=== PATIENT | male | born 1955 | race Caucasian/White ===

== ENCOUNTER 2025-07-13 18:50 | Observation (INO) | payer OTHER, SELFPAY ==
[2025-07-13] VITALS (16 sets, daily range): BP systolic 125–157; BP diastolic 70–105; PULSE 61–79; RESP 18; TEMP 36.9; O2SAT 96–100; BMI 19.1
--- NOTE | 2025-07-13 18:58 | XR_ITS ---
PROCEDURE INFORMATION: Exam: XR Chest Exam date and time: 07/13/2025 7:55 PM Age: 69 years old Clinical indication: Shortness of breath; Additional info: Short of breath TECHNIQUE: Imaging protocol: Radiologic exam of the chest. Views: 1 view. COMPARISON: CT ABDOMEN PELVIS W CON 07/13/2025 7:40 PM FINDINGS: Lungs: The lungs appear clear. No focal areas of consolidation. Left lung volume is mildly diminished compared to the right which may be due to patient positioning. Pleural spaces: No pleural effusions. Negative for pneumothorax. Heart/Mediastinum: Cardiac silhouette and pulmonary vasculature are within range of normal. Bones/joints: There is no evidence of acute fracture. The thoracic spine demonstrates moderate degenerative changes at multiple levels. Soft tissues: A few small foci of increased density in the left axillary region may reflect postsurgical change. IMPRESSION: Negative for an acute cardiopulmonary abnormality.
--- NOTE | 2025-07-13 18:59 | CT_ITS ---
PROCEDURE INFORMATION: Exam: CT Abdomen And Pelvis With Contrast Exam date and time: 07/13/2025 7:40 PM Age: 69 years old Clinical indication: Other: Weakness/dysuria TECHNIQUE: Imaging protocol: Computed tomography of the abdomen and pelvis with contrast. Radiation optimization: All CT scans at this facility use at least one of these dose optimization techniques: automated exposure control; mA and/or kV adjustment per patient size (includes targeted exams where dose is matched to clinical indication); or iterative reconstruction. Contrast material: ISOVUE; Contrast volume: 75 ml; Contrast route: IV; COMPARISON: No relevant prior studies available. FINDINGS: Lungs: Mild centrilobular emphysematous changes are present. There is a 6.1 mm nodule in the right middle lobe seen on series 3, image 12. There is mild mosaic attenuation involving the visualized right mid lung. There is mild paraseptal emphysema involving the visualized lung bases.There is a pulmonary parenchymal calcification consistent with remote granulomatous organism exposure. Pleural spaces: There are no pleural effusions. Heart: The visualized portions of the heart are unremarkable. There is no evidence of pericardial fluid collections. Liver: The liver demonstrates a punctate calcification consistent with remote granulomatous organism exposure.There is diffuse decrease in hepatic/liver parenchymal density consistent with fatty infiltration. Gallbladder and biliary ducts: The gallbladder is normal. Pancreas: There is diffuse atrophy of the pancreatic parenchyma. Spleen: The spleen demonstrates punctate calcifications, consistent with remote granulomatous organism exposure. Adrenal glands: The adrenal glands are normal. Kidneys and ureters: There is an inferior right renal cyst measuring 2.2 cm. There are few areas of renal cortical scarring/thinning bilaterally. No hydronephrosis. Stomach and bowel: Apparent antral pyloric mural thickening could be on the basis of incomplete distension but cannot exclude gastritis or other inflammatory or infiltrative process. Correlate clinically. Lack of gastrointestinal contrast limits evaluation of bowel. There is mildly excessive colonic stool content. Unopacified loops of small bowel are within range of normal. There is mild fluid-filled distension of the proximal duodenum proximal to its crossing over the midline, findings of uncertain clinical significance. Correlate clinically. Appendix: No evidence of appendicitis. Intraperitoneal space: No evidence of intraperitoneal free air. There is no evidence of free intraperitoneal or pelvic fluid. Vasculature: There is no evidence of an aortic aneurysm. The aorta demonstrates mild atherosclerotic calcification. There is an aneurysm of the abdominal aorta, originating below the level of the renal artery origins and terminating above the level of the aortic bifurcation measuring approximately 3.7 x 3.9 x 5.9 cm. There is a moderate degree of peripheral atheromatous/thrombus. Subtle streaky linear areas of decreased attenuation within the SMV, portal vein and right portal vein branches likely reflect inflow phenomenon. There is minor narrowing of the proximal SMA best seen on series 3, images 43 -49. Mild vascular calcifications involve the proximal renal arteries bilaterally. Findings suggest mild stenosis involving the right renal artery. Lymph nodes: There are prominent inguinal lymph nodes bilaterally. One of the more prominent right inguinal lymph nodes measures approximately 1.9 cm. Right and more prominent left inguinal lymph nodes measures 1.8 cm. Correlate clinically. There is a prominent right pelvic external iliac node measuring 13 mm in short axis. There are prominent left external iliac nodes also present measuring approximately 13 mm. No additional pathologic adenopathy. Urinary bladder: The bladder is partially decompressed. As seen, it appears within range of normal. Reproductive: The prostate and seminal vesicles are normal. Bones/joints: There are mild degenerative changes of the hip joints. There are mild degenerative changes of the symphyseal pubic joint. There are mild degenerative changes of the sacroiliac joints. The thoracolumbar spine demonstrates mild degenerative changes at multiple levels. Soft tissues: Unremarkable. IMPRESSION: 1. Multiple enlarged bilateral inguinal and external iliac lymphadenopathy. Correlate clinically. Included in the differential is metastatic disease and lymphoma in the appropriate clinical setting. 2. Infrarenal aortic aneurysm measuring 3.7 x 3.9 x 5.9 cm with moderate degree of peripheral thrombus. 3. Apparent mild antral pyloric mural thickening could be on the basis of incomplete distension but cannot exclude gastritis or other inflammatory or infiltrative process. Correlate clinically. 4. Mild emphysematous changes 5. Fatty hepatic infiltration. 6. Mild constipation. 7. Mild fluid-filled prominence of the proximal duodenum prior to crossing to the left of midline of uncertain clinical significance. Correlate clinically. 8. 6.1 mm nodule in the right middle lobe. For patients at low risk (minimal or absent history of smoking and of other known risk factors), recommend CT Chest at 3-6 months, then consider CT Chest at 18-24 months. For patients at high risk (history of smoking or of other known risk factors), recommend CT Chest at 3-6 months, then CT Chest at 18-24 months. (Reference: Nicanor) References: Nicanor Hdez et al. Guidelines for Management of Incidental Pulmonary Nodules Detected on CT Images: From the [employer]ner Society 2017. Radiology. 2017;284(1):228-243. COMMENTS: Consistent with the [employer]'s Incidental Findings Committee white paper (J Am Sascha Radiol 2018): Any incidental renal lesion less than 1 cm or classified as too small to characterize, or any incidental cystic renal lesion characterized as simple-appearing, is likely benign. No follow-up imaging is recommended for these lesions per consensus recommendations based on imaging criteria.
--- NOTE | 2025-07-13 19:00 | ED_ITS ---
<Statement entered by Blaine Cruz MD - 07/13/25 22:43> I was consulted by the NATA, and we discussed the complexity of the problems being addressed. I approved the treatment and management plan for this patient's care in the emergency department, thus performing a substantive portion of the medical decision making. Blaine Cruz MD, [place], FACEP Discharge Plan Disposition Patient Disposition: Xfer Other Referrals Follow up/Referrals: Provider,Referral, MD [Primary Care Provider, Medical] - See instructions Clinical Impressions Clinical Impression: Exfoliative erythroderma, Bilateral leg weakness, Peripheral vascular disease, Inability to walk, Abdominal aneurysm Print Language Print Language: Telugu Discharge ED Provider: Blaine Cruz General Adult HPI <Erica Cam (ED), NOTCHING PRESS OPERATOR - Last Filed: 07/13/25 22:28> General Chief complaint: Weakness Stated complaint: weakness Time Seen by Provider: 07/13/25 18:54 Mode of Arrival: EMS Source of Information: Patient and EMS Description of Symptoms (Recalled from ER Triage Doc. by RN): Pt presents by EMS for evaluation of multiple complaints. [place] but is staying in [place] with a friend. Pt is reporting pain all over , is having difficulty with standing, left leg pain, and has been urinating on himself. [facility] History of Present Illness HPI narrative: 69-year-old male presents via EMS for weakness, dysuria, incontinence for over a week, back pain however this is chronic, bilateral leg pain, difficulty walking over the last week. Patient has had no recent falls however he tells me that he fell 2 months ago. [facility] has had [facility] in the past. He has no idea when he has had a stroke the last 2. Patient has no focal weakness. He has no fevers, no chills, no burning with urination no vomiting no abdominal pain no diarrhea. He is a heavy smoker. He has been wearing depends whereas he typically does not wear depends. Daughter states that he has not been taking his meds correctly. She tells me that he is a smoker. 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 Related Data Allergies Allergy/AdvReac Type Severity Reaction Status Date / Time No Known Allergies Allergy Verified 07/13/25 19:04 PFSH <Erica Cam (ED), NOTCHING PRESS OPERATOR - Last Filed: 07/13/25 22:28> [facility] Disclaimer: The information contained in this section may have been updated after the patient was seen, as this information can be updated by other users. Social History (Updated 07/13/25 @ 22:28 by Erica Cam (ED), NOTCHING PRESS OPERATOR) Smoking Status: Current every day smoker alcohol intake: former current occupational status: other Travel in the last 8 weeks?: None Have you lived/traveled outside US in past 30 days?: No Contact w/someone who lives/traveled outside US past 30 days?: No Exposure to someone with infectious disease in past 14 days?: No Do you have a fever (greater than 100.4 F or 38 C)?: No Have you tested positive for COVID-19?: No Exposed to someone with COVID-19 in past 14 days?: No Do you have a sore throat?: No Do you have a cough?: No Do you have any weakness?: No Do you have any diarrhea?: No Are you experiencing any unusual bleeding?: No Do you have any muscle aches/pain?: No Do you have any abdominal pain?: No Are you experiencing loss of taste or smell?: No <Erica Cam (ED), NOTCHING PRESS OPERATOR - Last Filed: 07/13/25 22:28> ROS Obtained: Yes Systems reviewed as appropriate & no additional complaints except as documented Constitutional Constitutional: Reports as per HPI Physical Exam <Erica Cam (ED), NOTCHING PRESS OPERATOR - Last Filed: 07/13/25 22:28> General General appearance: alert and in distress Comment: Appears uncomfortable from head to toe psoriasis Head Head exam: atraumatic and normocephalic Eye Eye exam: Present PERRL and EOMI ENT ENT exam: Present normal oropharynx and mucous membranes moist Neck Neck exam: Present full ROM and trachea midline Respiratory Respiratory exam: Present normal lung sounds bilaterally Cardiovascular Cardiovascular exam: Present regular rate, normal rhythm, normal heart sounds, +S1 and +S2 Abdominal Exam Abdominal exam: Present soft and normal bowel sounds Extremities Exam Extremities exam: Present full ROM and other (Psoriasis) Neurological Exam Neurological exam: Present alert and oriented X3 Skin Skin exam: Present warm, dry, rash, erythema and other (Very scaly, dry skin covered with psoriasis) Medical Decision Making <Erica Cam (ED), NOTCHING PRESS OPERATOR - Last Filed: 07/13/25 22:28> Medical Records Screening: Per USPSTF and CDC recommendations, given the prevalence of disease in our region, it is our hospital?s policy to screen for HIV and viral Hepatitis for all patients aged 18 and over and those with ongoing risk factors. [place] Inquiry Pt receiving controlled substance: No [place] was queried for this patient: No Vital Signs: 07/13/25 18:49 07/13/25 19:19 07/13/25 19:30 Temperature 98.5 F Temperature Source Oral Pulse Rate 79 Pulse Rate [Right] 76 Respiratory Rate 18 Blood Pressure 125/70 Blood Pressure [Right Arm] 150/105 H Blood Pressure Mean 97 Blood Pressure Mean [Right Arm] 120 Blood Pressure Source [Right Arm] Automatic Cuff Blood Pressure Position [Right Arm] Sitting 02 Sat by Pulse Oximetry 96 99 Oxygen Delivery Method Room Air Room Air 07/13/25 19:58 07/13/25 19:59 07/13/25 20:00 Temperature Temperature Source Pulse Rate 72 73 Pulse Rate [Right] Respiratory Rate Blood Pressure 140/75 Blood Pressure [Right Arm] Blood Pressure Mean 96 Blood Pressure Mean [Right Arm] Blood Pressure Source [Right Arm] Blood Pressure Position [Right Arm] 02 Sat by Pulse Oximetry 100 99 Oxygen Delivery Method Room Air Room Air 07/13/25 20:14 07/13/25 20:31 07/13/25 20:51 Temperature Temperature Source Pulse Rate 74 72 Pulse Rate [Right] Respiratory Rate Blood Pressure 157/93 H Blood Pressure [Right Arm] Blood Pressure Mean 114 Blood Pressure Mean [Right Arm] Blood Pressure Source [Right Arm] Blood Pressure Position [Right Arm] 02 Sat by Pulse Oximetry 99 98 Oxygen Delivery Method Room Air Room Air 07/13/25 21:00 07/13/25 22:14 07/13/25 22:15 Temperature Temperature Source Pulse Rate 77 67 Pulse Rate [Right] Respiratory Rate Blood Pressure Blood Pressure [Right Arm] Blood Pressure Mean Blood Pressure Mean [Right Arm] Blood Pressure Source [Right Arm] Blood Pressure Position [Right Arm] 02 Sat by Pulse Oximetry 99 96 100 Oxygen Delivery Method Room Air Room Air Room Air 07/13/25 22:15 07/13/25 22:30 07/13/25 22:30 Temperature Temperature Source Pulse Rate 64 Pulse Rate [Right] Respiratory Rate Blood Pressure 137/85 132/74 Blood Pressure [Right Arm] Blood Pressure Mean 102 93 Blood Pressure Mean [Right Arm] Blood Pressure Source [Right Arm] Blood Pressure Position [Right Arm] 02 Sat by Pulse Oximetry 98 Oxygen Delivery Method Room Air 07/13/25 22:45 07/13/25 23:00 Temperature Temperature Source Pulse Rate 61 Pulse Rate [Right] Respiratory Rate Blood Pressure 155/82 H Blood Pressure [Right Arm] Blood Pressure Mean 106 Blood Pressure Mean [Right Arm] Blood Pressure Source [Right Arm] Blood Pressure Position [Right Arm] 02 Sat by Pulse Oximetry 98 Oxygen Delivery Method Room Air Lab Data Lab Results 07/13/25 18:58: WBC 11.2 H, RBC 4.52 L, Hgb 14.6, Hct 41.9 L, MCV 92.7, MCH 32.3 H, MCHC 34.8, RDW 14.4, Plt Count 395, MPV 10.8 H, Neut % (Auto) 73.6, Lymph % (Auto) 14.1, [place] % (Auto) 10.5 H, Eos % (Auto) 0.6, Baso % (Auto) 0.8, Neut # (Auto) 8.3 H, Lymph # (Auto) 1.6, [place] # (Auto) 1.2 H, Eos # (Auto) 0.1, Baso # (Auto) 0.1, Total Counted 100, Neutrophils % (Manual) 71, Lymphocytes % (Manual) 13, Monocytes % (Manual) 12 H, Eosinophils % (Manual) 3, Basophils % (Manual) 1.0, Platelet Estimate Normal, Giant Platelets 1+, RBC Morphology Not Reportable, Polychromasia 1+, Poikilocytosis 1+, Anisocytosis 1+, Macrocytosis 1+, Target Cells 1+, Tear Drop Cells 1+, ESR 3, PT 12.3, INR 1.12 H, APTT 28.8, Sodium 139, Potassium 3.9, Chloride 101, Carbon Dioxide 26, Anion Gap 15.9 H, BUN 19, Creatinine 1.00, Estimated Creat Clear 55, Estimated GFR 74, Est GFR ( Amer) 90, Glucose 102 H, Lactate 1.6, Calcium 8.4, Magnesium 1.5 L, Total Bilirubin 0.8, AST 39, ALT 26, Alkaline Phosphatase 103, Total Creatine Kinase 534 H*, C-Reactive Protein 53.5 H, Total Protein 7.6, Albumin 3.5, G lobulin 4.1 H, Albumin/Globulin Ratio 0.9 L, Lipase 119 07/13/25 19:20: Chlamy pneumoniae PCR Not detected, Adenovirus (PCR) Not detected, B. pertussis DNA (PCR) Not detected, Coronavirus OC43 (PCR) Not detected, Coronavirus HKU1 (PCR) Not detected, Coronavirus 229E (PCR) Not detected, SARS-CoV-2 (PCR) Not detected, Coronavirus NL63 (PCR) Not detected, Human Metapneumovir PCR Not detected, Influenza A (H1) PCR Not detected, Influ A (H1N1/09) PCR Not detected, Influenza A (H3) PCR Not detected, Influenza Type A (PCR) Not detected, Influenza Type B (PCR) Not detected, M. pneumoniae (PCR) Not detected, Parainfluenza 1 (PCR) Not detected, Parainfluenza 2 (PCR) Not detected, Parainfluenza 3 (PCR) Not detected, Parainfluenza 4 (PCR) Not detected, RSV (PCR) Not detected, Entero/Rhino (PCR) Not detected 07/13/25 21:20: Urine Color Yellow, Urine Appearance Clear, Urine pH 6.0, Ur Specific [place] 1.010, Urine Protein Negative, Urine Glucose (UA) Negative, Urine Ketones Negative, Urine Blood Negative, Urine Nitrate Negative, Urine Bilirubin Negative, Urine Urobilinogen 1.0, Ur Leukocyte Esterase Negative, Urine RBC None, Urine WBC Occasional, Ur Squamous Epith Cells None, Urine Bacteria Trace 07/13/25 18:58 07/13/25 18:58 Orders (Tests/Meds): ED MEDICATIONS Generic Name Dose Route Start Last Admin Trade Name Freq PRN Reason Stop Dose Admin Sodium Chloride 10 ml 07/13/25 19:48 07/13/25 19:59 Sodium Chloride 0.9% 10ml Syr (Rad Only) IV 08/12/25 19:47 10 ml NEEDED PRN Administration Maintain IV Site Sodium Chloride 10 ml 07/13/25 21:43 07/13/25 21:44 Sodium Chloride 0.9% 10ml Syr (Rad Only) IV 08/12/25 21:42 10 ml NEEDED PRN Administration Maintain IV Site Discontinued Medications Generic Name Dose Route Start Last Admin Trade Name Ananda PRN Reason Stop Dose Admin Dexamethasone Sodium Phosphate 10 mg 07/13/25 19:06 07/13/25 19:29 Dexamethasone 4mg/Ml 1ml Vial IV 07/13/25 19:07 10 mg ONCE ONE Administration Ceftriaxone Sodium 2 gm/ 100 mls @ 200 mls/hr 07/13/25 18:56 07/13/25 21:53 Sodium Chloride IV 07/13/25 19:25 Infused ONCE ONE Infusion Lactated Ringer's 1,660 mls @ 830 mls/hr 07/13/25 18:56 07/13/25 19:39 Lactated Ringer's 1000 Ml Bag 30 ml/kg infuse over 2 hr (1660 ml) 07/13/25 20:55 830 mls/hr IV Administration .Q2H ONE Protocol Magnesium Sulfate 2 gm in 50 mls @ 50 mls/hr 07/13/25 19:31 07/13/25 21:54 Magnesium Sulfate 2gm/50ml Premix IV 07/13/25 20:30 Infused ONCE ONE Infusion Iopamidol 75 ml 07/13/25 19:48 07/13/25 19:59 Iopamidol-370 (76%);100ml Bottle IV 07/13/25 19:49 75 ml ONCE ONE Administration Iopamidol 120 ml 07/13/25 21:43 07/13/25 21:44 Iopamidol-370 (76%);100ml Bottle IV 07/13/25 21:44 120 ml ONCE ONE Administration Morphine Sulfate 4 mg 07/13/25 19:06 07/13/25 19:28 Morphine 4mg/Ml Syringe IV 07/13/25 19:07 4 mg ONCE ONE Administration Ondansetron HCl 4 mg 07/13/25 19:06 07/13/25 19:29 Ondansetron 4mg/2ml Vial IV 07/13/25 19:07 4 mg ONCE ONE Administration Sodium Chloride 100 ml 07/13/25 21:43 07/13/25 21:44 0.9 % Sodium Chloride 50 Ml Vial IV 07/13/25 21:44 100 ml ONCE ONE Administration ORDERS Category Date Time Status CT abdomen pelvis w con Stat Cat Scan 07/13/25 18:[address] angio abdomen/femoral Stat Cat Scan 07/13/25 20:17 Completed Chest XR -- portable [XR chest portable] Stat Exams 07/13/25 18:58 Completed Activated Partial Thrombo Time Stat Lab 07/13/25 18:58 Completed C-Reactive Protein Stat Lab 07/13/25 18:58 Completed Complete Blood Count Auto Diff Stat Lab 07/13/25 18:58 Completed Comprehensive Metabolic Panel Stat Lab 07/13/25 18:58 Completed Creatine Kinase Stat Lab 07/13/25 18:58 Completed Erythrocyte Sedimentation Rate Stat Lab 07/13/25 18:58 Completed Full Resp Panel w/COVID ([facility]) Routine Lab 07/13/25 19:20 Completed Lactic Acid Stat Lab 07/13/25 18:58 Completed Lipase Stat Lab 07/13/25 18:58 Completed Magnesium Stat Lab 07/13/25 18:58 Completed Prothrombin Time INR Stat Lab 07/13/25 18:58 Completed Urinalysis and Microscopic Stat Lab 07/13/25 21:20 Completed Blood Culture Stat Micro 07/13/25 20:50 Received Urine Culture Stat Micro 07/13/25 18:56 Received Medical Decision Narrative: patient is a 69-year-old male presenting to the emergency department for evaluation of weakness, recent dysuria and incontinence of urine over the last week and leg pain with difficulty walking.. Patient is hemodynamically stable and appears uncomfortable due to icthiosis and he complains of back pain upon arrival, afebrile. Differential diagnosis includes weakness, sepsis, urosepsis, skin infection, among other. Workup will be conducted with hematologic labs, specific imaging. Initial inventions include crystalloid bolus, analgesics, antibiotics. Initial workup reviewed by me hematologic labs are remarkable for white count 11.2, H&H were 14 and 41, INR was 1.12, BUN and creatinine were 19 and 1. We, Dr. Cruz and I did discuss with radiology that it is okay to scan patient for the CTA with runoff as well as a CT abdomen pelvis. We are giving patient fluids. Creatinine kinase was 534 which is high for patient. Patient has severe Icthyiosis. He has seen dermatology but has not heard anything from them. Patient screams with any weight or even the blanket on his legs. Patient has no focal weakness. Urine was negative <Blaine Cruz MD - Last Filed: 07/13/25 23:22> Vital Signs: 07/13/25 18:49 07/13/25 19:19 12/03/25 19:30 Temperature 98.5 F Temperature Source Oral Pulse Rate 79 Pulse Rate [Right] 76 Respiratory Rate 18 Blood Pressure 125/70 Blood Pressure [Right Arm] 150/105 H Blood Pressure Mean 97 Blood Pressure Mean [Right Arm] 120 Blood Pressure Source [Right Arm] Automatic Cuff Blood Pressure Position [Right Arm] Sitting 02 Sat by Pulse Oximetry 96 99 Oxygen Delivery Method Room Air Room Air 07/13/25 19:58 07/13/25 19:59 07/13/25 20:00 Temperature Temperature Source Pulse Rate 72 73 Pulse Rate [Right] Respiratory Rate Blood Pressure 140/75 Blood Pressure [Right Arm] Blood Pressure Mean 96 Blood Pressure Mean [Right Arm] Blood Pressure Source [Right Arm] Blood Pressure Position [Right Arm] 02 Sat by Pulse Oximetry 100 99 Oxygen Delivery Method Room Air Room Air 07/13/25 20:14 07/13/25 20:31 07/13/25 20:51 Temperature Temperature Source Pulse Rate 74 72 Pulse Rate [Right] Respiratory Rate Blood Pressure 157/93 H Blood Pressure [Right Arm] Blood Pressure Mean 114 Blood Pressure Mean [Right Arm] Blood Pressure Source [Right Arm] Blood Pressure Position [Right Arm] 02 Sat by Pulse Oximetry 99 98 Oxygen Delivery Method Room Air Room Air 07/13/25 21:00 07/13/25 22:14 07/13/25 22:15 Temperature Temperature Source Pulse Rate 77 67 Pulse Rate [Right] Respiratory Rate Blood Pressure Blood Pressure [Right Arm] Blood Pressure Mean Blood Pressure Mean [Right Arm] Blood Pressure Source [Right Arm] Blood Pressure Position [Right Arm] 02 Sat by Pulse Oximetry 99 96 100 Oxygen Delivery Method Room Air Room Air Room Air 07/13/25 22:15 07/13/25 22:30 07/13/25 22:30 Temperature Temperature Source Pulse Rate 64 Pulse Rate [Right] Respiratory Rate Blood Pressure 137/85 132/74 Blood Pressure [Right Arm] Blood Pressure Mean 102 93 Blood Pressure Mean [Right Arm] Blood Pressure Source [Right Arm] Blood Pressure Position [Right Arm] 02 Sat by Pulse Oximetry 98 Oxygen Delivery Method Room Air 07/13/25 22:45 07/13/25 23:00 Temperature Temperature Source Pulse Rate 61 Pulse Rate [Right] Respiratory Rate Blood Pressure 155/82 H Blood Pressure [Right Arm] Blood Pressure Mean 106 Blood Pressure Mean [Right Arm] Blood Pressure Source [Right Arm] Blood Pressure Position [Right Arm] 02 Sat by Pulse Oximetry 98 Oxygen Delivery Method Room Air Lab Data Lab results reviewed: Yes I reviewed the patient's lab results. Lab Results 07/13/25 18:58: WBC 11.2 H, RBC 4.52 L, Hgb 14.6, Hct 41.9 L, MCV 92.7, MCH 32.3 H, MCHC 34.8, RDW 14.4, Plt Count 395, MPV 10.8 H, Neut % (Auto) 73.6, Lymph % (Auto) 14.1, [place] % (Auto) 10.5 H, Eos % (Auto) 0.6, Baso % (Auto) 0.8, Neut # (Auto) 8.3 H, Lymph # (Auto) 1.6, [place] # (Auto) 1.2 H, Eos # (Auto) 0.1, Baso # (Auto) 0.1, Total Counted 100, Neutrophils % (Manual) 71, Lymphocytes % (Manual) 13, Monocytes % (Manual) 12 H, Eosinophils % (Manual) 3, Basophils % (Manual) 1.0, Platelet Estimate Normal, Giant Platelets 1+, RBC Morphology Not Reportable, Polychromasia 1+, Poikilocytosis 1+, Anisocytosis 1+, Macrocytosis 1+, Target Cells 1+, Tear Drop Cells 1+, ESR 3, PT 12.3, INR 1.12 H, APTT 28.8, Sodium 139, Potassium 3.9, Chloride 101, Carbon Dioxide 26, Anion Gap 15.9 H, BUN 19, Creatinine 1.00, Estimated Creat Clear 55, Estimated GFR 74, Est GFR ( Amer) 90, Glucose 102 H, Lactate 1.6, Calcium 8.4, Magnesium 1.5 L, Total Bilirubin 0.8, AST 39, ALT 26, Alkaline Phosphatase 103, Total Creatine Kinase 534 H*, C-Reactive Protein 53.5 H, Total Protein 7.6, Albumin 3.5, G lobulin 4.1 H, Albumin/Globulin Ratio 0.9 L, Lipase 119 07/13/25 19:20: Chlamy pneumoniae PCR Not detected, Adenovirus (PCR) Not detected, B. pertussis DNA (PCR) Not detected, Coronavirus OC43 (PCR) Not detected, Coronavirus HKU1 (PCR) Not detected, Coronavirus 229E (PCR) Not detected, SARS-CoV-2 (PCR) Not detected, Coronavirus NL63 (PCR) Not detected, Human Metapneumovir PCR Not detected, Influenza A (H1) PCR Not detected, Influ A (H1N1/09) PCR Not detected, Influenza A (H3) PCR Not detected, Influenza Type A (PCR) Not detected, Influenza Type B (PCR) Not detected, M. pneumoniae (PCR) Not detected, Parainfluenza 1 (PCR) Not detected, Parainfluenza 2 (PCR) Not detected, Parainfluenza 3 (PCR) Not detected, Parainfluenza 4 (PCR) Not detected, RSV (PCR) Not detected, Entero/Rhino (PCR) Not detected 07/13/25 21:20: Urine Color Yellow, Urine Appearance Clear, Urine pH 6.0, Ur Specific [place] 1.010, Urine Protein Negative, Urine Glucose (UA) Negative, Urine Ketones Negative, Urine Blood Negative, Urine Nitrate Negative, Urine Bilirubin Negative, Urine Urobilinogen 1.0, Ur Leukocyte Esterase Negative, Urine RBC None, Urine WBC Occasional, Ur Squamous Epith Cells None, Urine Bacteria Trace Orders (Tests/Meds): ED MEDICATIONS Generic Name Dose Route Start Last Admin Trade Name Freq PRN Reason Stop Dose Admin Sodium Chloride 10 ml 07/13/25 19:48 07/13/25 19:59 Sodium Chloride 0.9% 10ml Syr (Rad Only) IV 08/12/25 19:47 10 ml NEEDED PRN Administration Maintain IV Site Sodium Chloride 10 ml 07/13/25 21:43 07/13/25 21:44 Sodium Chloride 0.9% 10ml Syr (Rad Only) IV 08/12/25 21:42 10 ml NEEDED PRN Administration Maintain IV Site Discontinued Medications Generic Name Dose Route Start Last Admin Trade Name Freq PRN Reason Stop Dose Admin Dexamethasone Sodium Phosphate 10 mg 07/13/25 19:06 07/13/25 19:29 Dexamethasone 4mg/Ml 1ml Vial IV 07/13/25 19:07 10 mg ONCE ONE Administration Ceftriaxone Sodium 2 gm/ 100 mls @ 200 mls/hr 07/13/25 18:56 07/13/25 21:53 Sodium Chloride IV 07/13/25 19:25 Infused ONCE ONE Infusion Lactated Ringer's 1,660 mls @ 830 mls/hr 07/13/25 18:56 07/13/25 19:39 Lactated Ringer's 1000 Ml Bag 30 ml/kg infuse over 2 hr (1660 ml) 07/13/25 20:55 830 mls/hr IV Administration .Q2H ONE Protocol Magnesium Sulfate 2 gm in 50 mls @ 50 mls/hr 07/13/25 19:31 07/13/25 21:54 Magnesium Sulfate 2gm/50ml Premix IV 07/13/25 20:30 Infused ONCE ONE Infusion Iopamidol 75 ml 07/13/25 19:48 07/13/25 19:59 Iopamidol-370 (76%);100ml Bottle IV 07/13/25 19:49 75 ml ONCE ONE Administration Iopamidol 120 ml 07/13/25 21:43 07/13/25 21:44 Iopamidol-370 (76%);100ml Bottle IV 07/13/25 21:44 120 ml ONCE ONE Administration Morphine Sulfate 4 mg 07/13/25 19:06 07/13/25 19:28 Morphine 4mg/Ml Syringe IV 07/13/25 19:07 4 mg ONCE ONE Administration Ondansetron HCl 4 mg 07/13/25 19:06 07/13/25 19:29 Ondansetron 4mg/2ml Vial IV 07/13/25 19:07 4 mg ONCE ONE Administration Sodium Chloride 100 ml 07/13/25 21:43 07/13/25 21:44 0.9 % Sodium Chloride 50 Ml Vial IV 07/13/25 21:44 100 ml ONCE ONE Administration ORDERS Category Date Time Status CT abdomen pelvis w con Stat Cat Scan 07/13/25 18:[address] angio abdomen/femoral Stat Cat Scan 07/13/25 20:17 Completed Chest XR -- portable [XR chest portable] Stat Exams 07/13/25 18:58 Completed Activated Partial Thrombo Time Stat Lab 07/13/25 18:58 Completed C-Reactive Protein Stat Lab 07/13/25 18:58 Completed Complete Blood Count Auto Diff Stat Lab 07/13/25 18:58 Completed Comprehensive Metabolic Panel Stat Lab 07/13/25 18:58 Completed Creatine Kinase Stat Lab 07/13/25 18:58 Completed Erythrocyte Sedimentation Rate Stat Lab 07/13/25 18:58 Completed Full Resp Panel w/COVID ([facility]) Routine Lab 07/13/25 19:20 Completed Lactic Acid Stat Lab 07/13/25 18:58 Completed Lipase Stat Lab 07/13/25 18:58 Completed Magnesium Stat Lab 07/13/25 18:58 Completed Prothrombin Time INR Stat Lab 07/13/25 18:58 Completed Urinalysis and Microscopic Stat Lab 07/13/25 21:20 Completed Blood Culture Stat Micro 07/13/25 20:50 Received Urine Culture Stat Micro 07/13/25 18:56 Received Medical Decision Narrative: patient is a 69-year-old male presenting to the emergency department for evaluation of weakness, recent dysuria and incontinence of urine over the last week and leg pain with difficulty walking.. Patient is hemodynamically stable and appears uncomfortable due to icthiosis and he complains of back pain upon arrival, afebrile. Differential diagnosis includes weakness, sepsis, urosepsis, skin infection, among other. Workup will be conducted with hematologic labs, specific imaging. Initial inventions include crystalloid bolus, analgesics, antibiotics. Initial workup reviewed by me hematologic labs are remarkable for white count 11.2, H&H were 14 and 41, INR was 1.12, BUN and creatinine were 19 and 1. We, Dr. Cruz and I did discuss with radiology that it is okay to scan patient for the CTA with runoff as well as a CT abdomen pelvis. We are giving patient fluids. Creatinine kinase was 534 which is high for patient. Patient has severe Icthyiosis. He has seen dermatology but has not heard anything from them. Patient screams with any weight or even the blanket on his legs. Patient has no focal weakness. Urine was negative This is Dr. Cruz, I took over primarily from Erica pending CTa. CTA is performed which I personally interpreted there is evidence of peripheral vascular disease patient has a known from previous scan aortic abdominal aneurysm measuring approximately 4 cm there is significant atherosclerotic plaque but no acute arterial occlusion. This could be contributory the patient's chronic lower extremity weakness. Patient seems to be nonfocal on my exam. 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 He will need inpatient dermatology I discussed the case with hospital medicine Dr. Nguyen at [facility] and patient was ultimately transferred there for PT OT possibly neurology evaluation and vascular surgery evaluation and dermatology evaluation. Critical Care <Erica Cam (RUFUS), NOTCHING PRESS OPERATOR - Last Filed: 07/13/25 22:28> Critical Care Time Critical Care Time: No <Blaine Cruz MD - Last Filed: 07/13/25 23:22> Critical Care Time Critical Care Time: Yes Attestation: On 07/13/25, the high probability of a clinically significant, sudden or life threatening deterioration of the following system(s) required my full and direct attention, intervention and personal management. The time I documented below is in addition to time spent performing reported procedures but includes the following listed in this critical care notation. Total Time Total Critical Care Time: 35
--- NOTE | 2025-07-13 19:07 | ECG_ITS ---
APPROVED REPORT Exam: Resting ECG HR:69 bpm ECG Measurements Heart Rate 69 AXES [place] 125 P 82 QRSd 80 QRS -52 QT 409 T 46 QTc 427 Conclusion SINUS RHYTHM LEFT AXIS DEVIATION [QRS AXIS < -30] ABNORMAL ECG UNCONFIRMED REPORT Electronically signed by : Leo Cruz, 07/13/2025 23:27:09
[2025-07-13 19:11] LABS: Hematocrit 41.9 % (42.0-52.0); Hemoglobin 14.6 g/dL (14.1-18.0); Immature Granulocytes % 0.4 %; Mean Corpuscular HGB Conc 34.8 g/dL (31.8-35.4); Mean Corpuscular Hemoglobin 32.3 pg (27.0-31.2); Mean Corpuscular Volume 92.7 fl (80-94); Nucleated Red Blood Cells % 0 %; Platelet Count 395 K/mm3 (142-424); Red Blood Count 4.52 M/mm3 (4.60-6.20); Red Cell Distribution Width-SD 48.2 fL; White Blood Count 11.2 K/mm3 (4.8-10.8)
[2025-07-13 19:21] LABS: Chloride 101 mmol/L (98-107)
[2025-07-13 19:22] LABS: Albumin Level 3.5 g/dl (3.5-5.0); Potassium 3.9 mmoL/L (3.5-5.1); Sodium 139 mmol/L (136-145)
[2025-07-13 19:25] LABS: Adenovirus,PCR Not Detected (NotDetected); Chlamydophila Pneumoniae, PCR Not Detected (NotDetected); Coronavirus 19, PCR Not Detected (NotDetected); Coronovirus HKU1,PCR Not Detected (NotDetected); Influenza A, PCR Not Detected (NotDetected); Influenza AH1, 2009 Not Detected (NotDetected); Influenza AH1, PCR Not Detected (NotDetected); Influenza AH3,PCR Not Detected (NotDetected); Influenza B, PCR Not Detected (NotDetected); Mycoplasma Pneumoniae, PCR Not Detected (NotDetected); Parainfluenza 1, PCR Not Detected (NotDetected); Parainfluenza 2, PCR Not Detected (NotDetected); Parainfluenza 3, PCR Not Detected (NotDetected); Parainfluenza 4, PCR Not Detected (NotDetected)
[2025-07-13 19:25] LABS: Alanine Aminotransferase 26 U/L (12-78); Albumin/Globulin Ratio 0.9 (1.1-1.8); Alkaline Phosphatase 103 U/L (38-126); Anion Gap 15.9 mEq/L (5-15); Aspartate Amino Transferase 39 U/L (17-59); Bilirubin,Total 0.8 mg/dl (0.2-1.3); Blood Urea Nitrogen 19 mg/dl (9-20); Calcium 8.4 mg/dl (8.4-10.2); Carbon Dioxide 26 mmol/L (22.0-30.0); Creatine Kinase 534 U/L (55-170); Creatinine Clearance Estimated 55 mL/min (50-200); Creatinine,Serum 1.00 mg/dl (0.66-1.25); Estimated Glomerular Filt Rate 74 ml/min (>60); GFR (African American) 90 ML/MIN (>60); Globulin 4.1 g/dL (1.3-3.2); Glucose 102 mg/dl (74-100); Lipase 119 U/L (23-300); Total Protein,Serum 7.6 g/dl (6.3-8.2)
[2025-07-13 19:26] LABS: Magnesium 1.5 mg/dl (1.6-2.3)
[2025-07-13 19:27] LABS: Activated Partial Thrombo Time 28.8 seconds (22.8-30.6); INR 1.12 (0.9-1.1); Prothrombin Time 12.3 seconds (10.1-12.5)
[2025-07-13] MEDS: MORPHINE 4MG/ML SYRINGE 4 MG IV (19:28)
[2025-07-13] MEDS: ONDANSETRON 4MG/2ML VIAL 4 MG IV (19:29)
[2025-07-13] MEDS: DEXAMETHASONE 4MG/ML 1ML VIAL 10 MG IV (19:29)
[2025-07-13 19:31] LABS: C-Reactive Protein 53.5 mg/L (0-4)
[2025-07-13] MEDS: IOPAMIDOL-370 (76%);100ML BOTTLE 75 ML IV (19:59)
[2025-07-13] MEDS: SODIUM CHLORIDE 0.9% 10ML SYR (RAD ONLY) 10 ML IV ×2 (19:59→21:44)
--- NOTE | 2025-07-13 20:17 | CT_ITS ---
PROCEDURE INFORMATION: Exam: CTA Abdominal Aorta and Bilateral Lower Extremities (Run-off) With Contrast Exam date and time: 07/13/2025 9:29 PM Age: 69 years old Clinical indication: Other: Lower extremity weakness TECHNIQUE: Imaging protocol: Computed tomographic angiography of the of the abdominal aorta, pelvis and bilateral lower extremities with contrast. 3D rendering (Not supervised by radiologist): MIP and/or 3D reconstructed images were created by the technologist. Radiation optimization: All CT scans at this facility use at least one of these dose optimization techniques: automated exposure control; mA and/or kV adjustment per patient size (includes targeted exams where dose is matched to clinical indication); or iterative reconstruction. Contrast material: ISOVUE; Contrast volume: 120 ml; Contrast route: INTRAVENOUS (IV); COMPARISON: CT ABDOMEN PELVIS W CON 07/13/2025 7:40 PM FINDINGS: Aorta: Severe atherosclerotic calcification of the aorta. Redemonstrated fusiform infrarenal abdominal aortic aneurysm with severe peripheral atheromatous plaque extending to the level of the bifurcation, measuring up to 3.7 x 3.9 cm in diameter and 6.5 cm in craniocaudal extent. No aortic dissection. Celiac and mesenteric arteries: No occlusion or significant stenosis of the celiac artery and superior mesenteric artery. The inferior mesenteric artery is not visualized and likely chronically occluded. Renal arteries: Bilateral atherosclerotic calcification without occlusion or significant stenosis. Right iliac arteries: Moderate to severe atherosclerotic calcification without occlusion or high-grade stenosis. Focal 50% stenosis of the external iliac artery (series 5, image 126). Right femoral/popliteal arteries: Moderate to severe atherosclerotic calcification with scattered focal regions of approximately 50% stenosis. No occlusion or high-grade stenosis. Right infrapopliteal arteries: Scattered atherosclerotic calcifications. Patent tibioperoneal trunk, anterior tibial artery, peroneal artery, and posterior tibial artery. The peroneal artery becomes diminutive in caliber at the level of the ankle, with two-vessel runoff to the foot via the anterior and posterior tibial arteries. Left iliac arteries: Severe atherosclerotic calcification. 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 Approximately 50% stenosis of the proximal external iliac artery (series 5, image 111). No occlusion or high-grade stenosis. Left femoral/popliteal arteries: Moderate to severe atherosclerotic calcification with scattered focal regions of approximately 50% stenosis. No occlusion or high-grade stenosis. Left infrapopliteal arteries: Scattered atherosclerotic calcifications. Patent tibioperoneal trunk, anterior tibial artery, peroneal artery, and posterior tibial artery. Three-vessel runoff to the foot. Lungs: Moderate centrilobular emphysema of the visualized mid to lower lungs. A 6 mm nodule in the right middle lobe. Liver: Unremarkable liver. Gallbladder and biliary ducts: No calcified gallstones. No biliary ductal dilation. Pancreas: Atrophic pancreas. Spleen: Several punctate benign calcified granulomas in the spleen. Adrenal glands: Unremarkable adrenal glands. Kidneys and ureters: Symmetrically enhanced kidneys. No hydronephrosis. A right renal simple cyst. Stomach and bowel: No dilated or inflamed bowel. Large colonic stool volume. Appendix: Appendix is not visualized. Urinary bladder: Unremarkable urinary bladder with Delgado catheter in place. Reproductive: Mild prostatomegaly. Intraperitoneal space: No free air or free fluid. Lymph nodes: Enlarged bilateral inguinal and external iliac chain lymph nodes, nonspecific. Bones/joints: No acute fracture. No dislocation. Mild osteoarthritis of the hips. Multilevel chronic degenerative changes of the spine. Soft tissues: Unremarkable. IMPRESSION: 1. Infrarenal abdominal aortic aneurysm measuring 3.9 cm in diameter. Follow-up imaging in 2 years is recommended. 2. 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 3. Overall moderate to severe atherosclerotic calcification of the lower extremity arteries with scattered regions of approximately 50% stenosis. No occlusion or high-grade stenosis. 4. Two-vessel runoff to the right foot, via the anterior tibial and posterior tibial arteries. 5. Three-vessel runoff to the left foot. 6. Enlarged bilateral inguinal and external iliac lymph nodes, as seen on same-day CT abdomen and pelvis, nonspecific. 7. Large colonic stool volume. 8. Pulmonary emphysema. 9. A 6 mm nodule in the right middle lobe. For patients at low risk (minimal or absent history of smoking and of other known risk factors), recommend CT Chest at 6-12 months, then consider CT Chest at 18-24 months. For patients at high risk (history of smoking or of other known risk factors), recommend CT Chest at 6-12 months, then CT Chest at 18-24 months. (Reference: Nicanor) REFERENCES: Nicanor Hdez, et al. Guidelines for Management of Incidental Pulmonary Nodules Detected on CT Images: From the Fleischner Society 2017. Radiology. 2017;284(1):228-243.
[2025-07-13 20:22] LABS: Anisocytosis 1+; Giant Platelets 1+; Macrocytosis 1+; Poikilocytosis 1+; Tear Drop Cells 1+; Total Cells Counted 100
[2025-07-13 20:23] LABS: Polychromasia 1+; Target Cells 1+
[2025-07-13] MEDS: MAGNESIUM SULFATE IN WATER 2 GM/50 ML PIGGYBACK IV (20:35)
[2025-07-13 21:31] LABS: Microscopic, Urine URINE MICROSCOPIC (MICROSCOPIC)
[2025-07-13 21:34] LABS: Bilirubin,Urine Negative (Negative); Color,Urine YELLOW (Yellow); Glucose,Urine (UA) Negative (Negative); Ketones,Urine Negative (Negative); Leukocyte Esterase,Urine Negative (Negative); PH,Urine 6.0 (5.0-8.5); Protein,Urine Negative (Negative); Specific Gravity, Urine 1.010 (1.005-1.030); Urobilinogen,Urine 1.0 EU/dl (0.2)
[2025-07-13] MEDS: IOPAMIDOL-370 (76%);100ML BOTTLE 120 ML IV (21:44)
[2025-07-13] MEDS: 0.9 % SODIUM CHLORIDE 50 ML VIAL 100 ML IV (21:44)
[2025-07-13 21:56] LABS: Bacteria,Urine Trace /lpf; WBC,Urine Occasional #/hpf (0-3)
--- NOTE | 2025-07-13 22:38 | PC.NURSE ---
Called [facility] regarding pt transfer. stated they would call back
[2025-07-14] VITALS (15 sets, daily range): BP systolic 121–163; BP diastolic 55–97; PULSE 52–76; RESP 14–18; TEMP 36.4–36.7; O2SAT 96–100; BMI 19.6
--- NOTE | 2025-07-14 01:00 | PC.NURSE ---
Called for an update on pts bed assignment. stated they didnt have an update on this pts bed
--- NOTE | 2025-07-14 05:45 | PC.NURSE ---
Patient arrived to floor via stretcher from ED at 05:43.
--- NOTE | 2025-07-14 06:09 | P.HP_ITS ---
<Statement entered by Jesus Johnson MD - 07/19/25 15:52> Agree with plan of care as outlined by the ROAD COMMISSIONER. History of Present Illness *Admission Date: 07/14/25 *Reason for visit:: Weakness *History of present illness: This is a 69-year-old male who has a past medical history significant for chronic leg pain, difficulty walking, and possible CVA who presents to the emergency room with a chief complaint of weakness, difficulty urinating, and incontinence over the last week. Due to patient's symptoms, he presented to the emergency room for evaluation. While in the emergency room, chest x-ray was negative for any acute cardiopulmonary process. 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 He is currently awaiting bed placement. Patient has been accepted and is awaiting transfer to tertiary facility. He was in the emergency room for greater than 10 hours; as result, hospital medicine admitted patient for further management. During my evaluation of the patient, patient was a very poor historian. He did mention the a forementioned symptomology. [facility] had [facility] in the past but it was not clear. There is no family at the bedside during my evaluation. Patient currently denies any chest pain, lightheadedness, dizziness, fever, chills, rigors, nausea, vomiting, shortness of breath, dyspnea, or diarrhea. Additional pertinent vitals obtained include white blood cell count 11.2, red blood cell count of 4.52, INR 1.12, blood glucose 102, magnesium 1.5, CPK of 534, and C-reactive protein of 53.5. [facility] Disclaimer: The information contained in this section may have been updated after the patient was seen, as this information can be updated by other users. Medical History (Updated 07/14/25 @ 06:18 by Prasanth Santo APRN) COPD (chronic obstructive pulmonary disease) Social History (Updated 07/13/25 @ 22:28 by Erica Cam (RUFUS), ROAD COMMISSIONER) Smoking Status: Current every day smoker alcohol intake: former current occupational status: other Travel in the last 8 weeks?: None Review of Systems Review of Systems Review of systems:: pertinent systems reviewed and negative unless documented below Constitutional Constitutional: Reports fatigue, Reports lethargy and Reports weakness Eyes Eyes: Reports system reviewed and no additional complaints, except as documented ENT Ears, Nose, Mouth, and Throat: Reports system reviewed and no additional complaints, except as documented *Cardiovascular Cardiovascular: Reports system reviewed and no additional complaints, except as documented *Respiratory Respiratory: Reports system reviewed and no additional complaints, except as documented *Gastrointestinal Gastrointestinal: Reports system reviewed and no additional complaints, except as documented *Genitourinary Genitourinary: Reports difficulty urinating *Musculoskeletal Musculoskeletal: Reports atrophy, Reports muscle weakness and Reports myalgias Integumentary/Breasts Skin/Breast: Reports change in pigmentation, Reports rash, Reports skin ulcer and Reports skin swelling *Neurologic Neurologic: Reports system reviewed and no additional complaints, except as documented and Reports weakness Psychiatric Psychiatric: Reports system reviewed and no additional complaints, except as documented Endocrine Endocrine: Reports fatigue Hematologic/Lymphatic Hematologic/Lymphatic: Reports system reviewed and no additional complaints, except as documented Allergic/Immunologic Allergic/Immunologic: Reports system reviewed and no additional complaints, except as documented Meds Home Medications and Allergies Home Medications ?Medication ?Instructions ?Recorded ?Confirmed ?Type aspirin 81 mg tablet 81 mg PO DAILY 07/14/2512/03 History atorvastatin 80 mg tablet 80 mg PO DAILY 07/14/2512/03 History folic acid 1 mg tablet 1 mg PO DAILY 07/14/2507/14 History methotrexate sodium 2.5 mg tablet 20 mg PO WEEKLY 12/0307/14/25 History New Prescriptions to Start Prescriptions: Allergies Allergy/AdvReac Type Severity Reaction Status Date / Time No Known Allergies Allergy Verified 07/13/25 19:04 Exam Data for Last 24 hours Vital signs and Labs for Last 24 Hours: Temp Pulse Resp BP Pulse Ox O2 Del Method 97.6 F 52 L 18 161/89 H 98 Room Air 07/14/25 06:00 07/14/25 06:00 07/14/25 06:00 07/14/25 06:00 07/14/25 06:00 07/14/25 06:00 Laboratory Results - last 24 hr 07/13/25 18:58: WBC 11.2 H, RBC 4.52 L, Hgb 14.6, Hct 41.9 L, MCV 92.7, MCH 32.3 H, MCHC 34.8, RDW 14.4, Plt Count 395, MPV 10.8 H, Neut % (Auto) 73.6, Lymph % (Auto) 14.1, [place] % (Auto) 10.5 H, Eos % (Auto) 0.6, Baso % (Auto) 0.8, Neut # (Auto) 8.3 H, Lymph # (Auto) 1.6, [place] # (Auto) 1.2 H, Eos # (Auto) 0.1, Baso # (Auto) 0.1, Total Counted 100, Neutrophils % (Manual) 71, Lymphocytes % (Manual) 13, Monocytes % (Manual) 12 H, Eosinophils % (Manual) 3, Basophils % (Manual) 1.0, Platelet Estimate Normal, Giant Platelets 1+, RBC Morphology Not Reportable, Polychromasia 1+, Poikilocytosis 1+, Anisocytosis 1+, Macrocytosis 1+, Target Cells 1+, Tear Drop Cells 1+, ESR 3, PT 12.3, INR 1.12 H, APTT 28.8, Sodium 139, Potassium 3.9, Chloride 101, Carbon Dioxide 26, Anion Gap 15.9 H, BUN 19, Creatinine 1.00, Estimated Creat Clear 55, Estimated GFR 74, Est GFR ( Amer) 90, Glucose 102 H, Lactate 1.6, Calcium 8.4, Magnesium 1.5 L, Total Bilirubin 0.8, AST 39, ALT 26, Alkaline Phosphatase 103, Total Creatine Kinase 534 H*, C-Reactive Protein 53.5 H, Total Protein 7.6, Albumin 3.5, Globulin 4.1 H, Albumin/Globulin Ratio 0.9 L, Lipase 119 07/13/25 19:20: Chlamy pneumoniae PCR Not detected, Adenovirus (PCR) Not detected, B. pertussis DNA (PCR) Not detected, Coronavirus OC43 (PCR) Not detected, Coronavirus HKU1 (PCR) Not detected, Coronavirus 229E (PCR) Not detected, SARS-CoV-2 (PCR) Not detected, Coronavirus NL63 (PCR) Not detected, Human Metapneumovir PCR Not detected, Influenza A (H1) PCR Not detected, Influ A (H1N1/09) PCR Not detected, Influenza A (H3) PCR Not detected, Influenza Type A (PCR) Not detected, Influenza Type B (PCR) Not detected, M. pneumoniae (PCR) Not detected, Parainfluenza 1 (PCR) Not detected, Parainfluenza 2 (PCR) Not detected, Parainfluenza 3 (PCR) Not detected, Parainfluenza 4 (PCR) Not detected, RSV (PCR) Not detected, Entero/Rhino (PCR) Not detected 07/13/25 21:20: Urine Color Yellow, Urine Appearance Clear, Urine pH 6.0, Ur Specific [place] 1.010, Urine Protein Negative, Urine Glucose (UA) Negative, Urine Ketones Negative, Urine Blood Negative, Urine Nitrate Negative, Urine Bilirubin Negative, Urine Urobilinogen 1.0, Ur Leukocyte Esterase Negative, Urine RBC None, Urine WBC Occasional, Ur Squamous Epith Cells None, Urine Bacteria Trace I & O for Last 24 hours: Intake & Output 07/11/25 07/12/25 07/13/25 07/14/25 23:59 23:59 23:59 23:59 Intake Total 1810 / 1810 Output Total 1000 / 1000 Balance 1810 / 1810 -1000 / -1000 Weight 55.338 kg 56.79 kg Constitutional Constitutional: no acute distress, thin, disheveled and cooperative *Routine HEENT Exam Head: Present normocephalic and atraumatic Eye: Present EOMI, PERRL and normal accommodation ENT: Present mucous membranes moist *Routine Neck Exam Neck: Present supple, full ROM and trachea midline *Routine Respiratory Exam Respiratory: Present diminished air movement, normal respiratory effort, able to speak in complete sentences and symmetric chest movement *Routine Cardiovascular Exam Cardiovascular: Present RRR, Normal S1 and Normal S2 *Routine Abdominal Exam Abdominal: Present soft *Routine Rectal Exam Rectal:: deferred *Routine Genitalia Exam Genitalia:: deferred *Routine Extremities Exam Extremities: Present pulses intact and normal capillary refill Routine Back/Spine/Pelvis Exam Back/Spine: Present full ROM *Routine Skin Exam Skin: Present warm, wounds and rash *Routine Neurological Exam Neurological: Present alert, oriented X3, CN II-XII intact and moving all extremities Routine Psychiatric Exam Psychiatric: Present normal affect, cooperative, good insight and good judgment H&P: Result Impressions 69-year-old male presents with unknown significant history but states has CVA in the past has functional decline with inability to void found to have significant atopic dermatitis of some sort. Assessment and Plan *Assessment and plan (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): L26 - Exfoliative dermatitis (2) Abdominal aneurysm: Status: Acute Category: Medical Code(s): I71.40 - Abdominal aortic aneurysm, without rupture, unspecified (3) Inability to walk: Status: Acute Category: Medical Code(s): R26.2 - Difficulty in walking, not elsewhere classified (4) Elevated C-reactive protein (CRP): Status: Acute Category: Medical Code(s): R79.82 - Elevated C-reactive protein (CRP) (5) Leukocytosis: Status: Acute Qualifiers: Leukocytosis type: unspecified Qualified Code(s): D72.829 - Elevated white blood cell count, unspecified Category: Medical Code(s): D72.829 - Elevated white blood cell count, unspecified Plan Assessment: Exfoliative erythroderma Elevated CRP Leukocytosis - Patient has been accepted to [facility] by dermatology - Will implement conservative measures - Will give emollients and cool baths - Will trend CRP Abdominal aneurysm - Appears to be stable no evidence of dissection - Will need vascular consultation Functional decline/inability to walk - Physical therapy - Occupational Therapy Constipation - Give 20 g of lactulose x 1 - 250 mg of Colace daily - 8.6 g of Senokot daily Plan: Admit patient to the [facility] unit Once patient has a room we will transition patient to [facility] Activity as tolerated Wound care Case management Regular diet CBC/BMP daily/CPK Lactated Ringer's at 100 mL is now 40 mg Lovenox subcu daily for DVT prophylax Patient's magnesium was replaced in the emergency room 2 mg morphine IV push every 4 hours as needed severe pain 21 mg nicotine patch daily 4 mg Zofran IV push straight hours pain as above Blood cultures x 2 Full code i bharat discussed this case with attending physician Dr. Johnson and a look forward to more input
[2025-07-14] MEDS: DOCUSATE SODIUM 250MG CAPSULE 250 MG PO (09:14)
[2025-07-14] MEDS: ATORVASTATIN 40MG TABLET 80 MG PO (09:14)
[2025-07-14] MEDS: SENNA 8.6MG TABLET 8.6 MG PO (09:14)
[2025-07-14] MEDS: ASPIRIN EC 81MG TABLET 81 MG PO (09:14)
[2025-07-14] MEDS: FOLIC ACID 1MG TABLET 1 MG PO (09:14)
[2025-07-14] MEDS: POLYETHYLENE GLYCOL 3350 17 GM PACKET PO (09:14)
[2025-07-14] MEDS: LACTATED RINGERS 1000ML 1,000 ML 100 ML IV ×2 (09:37→19:50)
--- NOTE | 2025-07-14 10:26 | HMH.OTEV ---
OT Evaluation Rehab OT IP Evaluation Start: 07/14/25 05:36 Freq: ONCE Status: Active Protocol: Document 07/14/25 10:16 ARASH (Rec: 07/14/25 10:25 ARASH [id number]) Rehab OT IP Assessment Subjective History Per HPI: Source of Information: Patient and EMS Description of Symptoms (Recalled from ER Triage Doc. by RN): Pt presents by EMS for evaluation of multiple complaints. Pt is from [place] but is staying in [place] with a friend. Pt is reporting pain all over , is having difficulty with standing, left leg pain, and has been urinating on himself. [facility] History of Present Illness HPI narrative: 69-year-old male presents via EMS for weakness, dysuria , incontinence for over a week, back pain however this is chronic, bilateral leg pain, difficulty walking over the last week. Patient has had no recent falls however he tells me that he fell 2 months ago. [facility] has had [facility] in the past. He has no idea when he has had a stroke the last 2. Patient has no focal weakness. He has no fevers, no chills, no burning with urination no vomiting no abdominal pain no diarrhea. He is a heavy smoker. He has been wearing depends whereas he typically does not wear depends. Daughter states that he has not been taking his meds correctly. She tells me that he is a smoker. 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 Subjective Ow! Everything hurts. Pt was sitting in bed eating when therapy arrived this AM. Pt orient x3 and agreed to OT eval this AM. Pt reported they live alone in home with one step to enter. Pt reported they complete FM with no use of AD but does have cane if needed. Pt reported they still drive and are Ind in ADLs and IADLs. Pt also reported they complete hygiene with rag baths since they do not have a shower. Pt hutchinson snot have grab bars or shower chair. Pt can not recall if they have had a fall in past 30 days. Pt went from sitting in bed to EOB with SBA, however pt took 5 minutes to go from sitting to EOB. Pt reported pain and weakness in LB. Pt then completed STS with walker and GCA and completed FM task of 10 ft with CGA. Pt then sat back in bed and was assisted back to supine position. Pt left supine in bed with call light and all other needs within reach. Objective Patient Orientation Person,Birthday Right Upper WFL Extremity Gross ROM Left Upper Extremity WFL Gross ROM Bed Mobility bed mobility-scooting,bed mobility - supine/sit Assist Level Supervision/Stand by Transfer Training Sit/Stand Transfer Assist Level Contact Guard/Hand Hold Chair Transfer Sit to/from Ambulatory Technique Chair Transfer Rolling Walker Assistive Devices Decrease in Yes Endurance Rehab OT IP prob,goals,plan Problems Date of Evaluation: 07/14/25 OT IP Problems Bed Mobility,Transfers,Balance,Self care,Safety Rehab Potential Rehab Potential Good Equipment Needs Assistive Devices Rolling / Wheeled Walker Plan OT intervention Plan Bed Mobility,Transfers,Balance,Self care,Safety, Therapeutic Exercise OT Plan Frequency Daily Duration LOS Discharge Goals Bed Mobility Ability Independent Sit to Stand Chair Independent Transfer Ability Chair Transfer Independent Ability Chair Transfer Sit to/from Ambulatory Technique Chair Transfer Straight Cane,Rolling Walker Assistive Devices Feeding Ability Assist with Tray Set Up Commode/Toilet Grab Bars Transfer Assistive Devices Decrease in No Endurance Discharge Plan OT Discharge Plan At this time, pt presents below baseline in occupational performance and would benefit from skilled acute OT services and interventions while admitted at [facility]. Once medically stable and DC from [facility], OT recommends placement to further address these deficits and improve optimal occupational performance with skilled OT services and interventions. Eval Complexity Eval Charge Codes 56109 - Moderate Complexity PHYSICIAN CERTIFICATION: I certify the specified therapy services for Jonh Wood are required, authorized, and reviewed every 30 days.
--- NOTE | 2025-07-14 10:47 | HMH.PTEV ---
Physical Therapy Evaluation Rehab PT IP Evaluation Start: 07/14/25 06:11 Freq: ONCE Status: Active Protocol: Document 07/14/25 10:40 PRABHU (Rec: 07/14/25 10:45 PRABHU [id number]) Subjective/History History History Per H&P: This is a 69-year-old male who has a past medical history significant for chronic leg pain , difficulty walking, and possible CVA who presents to the emergency room with a chief complaint of weakness, difficulty urinating, and incontinence over the last week. Due to patient's symptoms, he presented to the emergency room for evaluation. While in the emergency room, chest x-ray was negative for any acute cardiopulmonary process. 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 He is currently awaiting bed placement. Patient has been accepted and is awaiting transfer to tertiary facility. He was in the emergency room for greater than 10 hours; as result, hospital medicine admitted patient for further management. During my evaluation of the patient, patient was a very poor historian. He did mention the a forementioned symptomology. [facility] that [facility] had [facility] in the past but it was not clear. There is no family at the bedside during my evaluation. Patient currently denies any chest pain, lightheadedness, dizziness, fever, chills, rigors, nausea, vomiting, shortness of breath, dyspnea, or diarrhea. Additional pertinent vitals obtained include white blood cell count 11.2, red blood cell count of 4.52, INR 1.12, blood glucose 102, magnesium 1.5, CPK of 534, and C- reactive protein of 53.5. Subjective Subjective Pt reports he lives alone in a home with 1 MAGUI. Pt normally IND with ambulation. Pt still drives. [facility] How much help from another person do you currently need... Turning from your A little back to your side while in a flat bed without using bedrails? Moving from lying on A little back to sitting on the side of a flat bed without using bedrails? Moving to and from a A little bed to a chair ( including a wheelchair)? Standing up from a A little chair using your arms? (e.g., wheelchair, bedside chair) Walking in hospital A little room? Climbing 3-5 steps A little with a railing? Mobility Score 18 Mobility Level [facility] Mobility 6 Walk 10 steps or more Mobility Calculator Rehab PT IP Eval Objective Appearance Patient Behavior Appropriate,Cooperative Patient Orientation Person,Birthday Difficulty following none instructions Speech Pattern Clear Ambulation Patient Able to Yes Ambulate Ambulation Observation IP General Gait Wide Based Gait Pattern Observation Ambulation Distance 5 (feet) Ambulation Assistive None Device Ambulation Ability Minimal x 1 (25% assist) Balance Ability to Arise Able, uses arms to help Sitting Balance Steady, safe Standing Balance Steady, wide stance Dynamic Sitting Good Balance Ability Dynamic Standing Fair Balance Ability Transfers Bed Transfer Ability Minimal x 1 (25% assist) Sit to Stand Bed Minimal x 1 (25% assist) Transfer Ability Rehab PT IP prob,goals,plan Problems Date of Evaluation: 07/14/25 PT IP Problems Bed Mobility,Transfers,Gait,Balance,Self care,Safety Rehab Potential Rehab Potential Good Equipment Needs Assistive Devices Rolling / Wheeled Walker Plan PT Intervention Plan Bed Mobility,Transfers,Gait,Balance,Self care,Safety, Therapeutic Exercise Other Intervention 1-2 times Plan PT Plan Frequency Daily Duration LOS Discharge Goals Bed Transfer Ability Independent Sit to Stand Chair Independent Transfer Ability Ambulation Assistive Rolling Walker Device Ambulation Distance 20 (feet) Discharge Plan PT Discharge Plan Initial physical therapy evaluation performed. Patient presents below baseline at this time in functional mobility, transfers, and strength. Pt not safe to return home at this time d/t current level of functional mobility. PT recommending inpatient rehabilitation facility (IRF) placement upon d/c from [facility]. Pt would benefit from skilled PT while at [facility] to prevent further functional decline and maximize safety with mobility. Eval Complexity Eval Charge Codes 81478 - Moderate Complexity PHYSICIAN CERTIFICATION: I certify the specified therapy services for Jonh Gonzalezpherd are required, authorized, and reviewed every 30 days.
--- NOTE | 2025-07-14 13:43 | SW/DCPLANNER ---
Addendum entered by [facility] 07/18/25 15:49: Patient's daughter will transport patient to [facility] level of care today. Addendum entered by Vicki Kuhn RN 07/18/25 14:51: Darius called and patient is good to come today as long as he is there by 6pm. I have contacted [facility] [employer] COMMENT[employer] to discharge, airline stewardess and provided fax number of [phone] and Jesus RN report phone number [phone] Addendum entered by [facility] 07/18/25 14:04: Per Aeveronique patient has been approved SNF level of care. I have called and updated Darius w/ [facility]. I am waiting on Darius to contact me back regarding situation. Addendum entered by [facility] 07/18/25 08:40: Per Darius auth is still pending at this time. CM will continue to follow up. Addendum entered by [facility] 07/15/25 12:19: [facility] w/ [facility] ([phone]) stated that she can accept this patient and auth will be started today. I have updated Analisa lAek, patient and daughter. Addendum entered by [facility] 07/15/25 11:56: Per Niki w/ [facility] male beds open and they do accept patient's insurance. Patient information has been faxed. Addendum entered by [facility] 07/15/25 11:50: Patient does not have a VA skilled benefit. [facility], [facility], [facility], [facility] is not able to accept this patient. I am waiting to hear back from [facility] and [facility]. I have updated patient and called to update patient's daughter. Addendum entered by [facility] 07/14/25 14:56: Patient information has been faxed to the following facilities: [facility], [facility] and [facility]. [facility] is not in network w/ patient's insurance. Per Son[facility] / [facility] no beds available. CM will continue to follow up. Original Note: I spoke w/ patient and his daughter regarding plans once medically stable for discharge. PT/OT evaluated patient and recommended SNF level of care. Patient and daughter are somewhat agreeable to placement if insurance will cover this expense. Per patient he prefers whatever his daughter is requesting. Daughter is requesting that I contact local and surrounding areas for SNF level of care. I will begin looking for placement/reviewing insurance benefit. CM will continue to follow up.
--- NOTE | 2025-07-14 14:01 | P.EN_ITS ---
<Statement entered by Jesus Johnson MD - 07/19/25 15:51> Agree with plan of care as outlined by the [facility]. Lengthy discussion had with patient and patient's daughter, Makenna, about plan of care. Patient was admitted to our service awaiting transport to . He has been accepted by Dr. Nguyen. After discussion with patient and family they do not want him transferred to the [facility]. Patient is refusing. I spoke with Dr. Todd at who states they do not have any inpatient dermatology and the only close options would be [facility] or [facility], both of which patient and family are not agreeable to. Patient was assessed by PT/OT who recommend placement, discussed with patient the possibility of discharge to placement facility for rehab services and strength gaining, patient and family state they are possibly open to that idea. [facility] is [facility] and the family want him transferred to the [facility], contacted the [facility] who states they have no beds and do not have inpatient dermatology services. This was explained to the patient and his family who state they may just sign him out of this hospital and take him to the [place] emergency department. Discussed in length my recommendation of continuing to transfer to the [facility] when a bed is available, patient and family continue to refuse. At this time Darby Rowell, social work, states she will reach out to local SNF facilities to see what the patient's options are. If patient decides to discharge to SNF facility, outpatient dermatology follow-up is encouraged due to life limiting skin condition and pain. 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 I believe that his skin condition causes him extreme pain and increased weakness therefore limiting his ability to move and care for himself.
[2025-07-15 04:00] VITALS: BP 106/61; PULSE 55; RESP 14; TEMP 36.6; O2SAT 97; BMI 18.6
[2025-07-15] MEDS: HYDROCODONE/APAP 5/325 MG TABLET 1 TAB PO ×2 (04:06→16:30)
[2025-07-15] MEDS: LACTATED RINGERS 1000ML 1,000 ML 100 ML IV ×2 (05:38→19:35)
[2025-07-15 08:00] VITALS: BP 118/68; PULSE 55; RESP 16; TEMP 36.4; O2SAT 97
[2025-07-15 08:30] VITALS: O2SAT 97
[2025-07-15] MEDS: POLYETHYLENE GLYCOL 3350 17 GM PACKET PO (08:40)
[2025-07-15] MEDS: SENNA 8.6MG TABLET 8.6 MG PO (08:41)
[2025-07-15] MEDS: ASPIRIN EC 81MG TABLET 81 MG PO (08:41)
[2025-07-15] MEDS: ATORVASTATIN 40MG TABLET 80 MG PO (08:41)
[2025-07-15] MEDS: DOCUSATE SODIUM 250MG CAPSULE 250 MG PO (08:41)
[2025-07-15] MEDS: FOLIC ACID 1MG TABLET 1 MG PO (08:41)
--- NOTE | 2025-07-15 10:18 | P.PN_ITS ---
<Statement entered by Jesus Johnson MD - 07/19/25 15:57> Agree with plan of care as outlined by the SPIRAL [employer]NER. Subjective *Date: 07/15/25 *Time: 10:18 Interval history: Patient up to chair, working with PT/OT. Presents below baseline. Patient refusing all labs this morning. Awaiting placement options at this time. Medical Exam Vital signs and Labs for Last 24 Hours: Vital Signs Temp Pulse Resp BP Pulse Ox O2 Del Method 07/15/25 09:20 Room Air 07/15/25 08:30 97 Room Air 07/15/25 08:00 97.6 F 55 L 16 118/68 97 Room Air 07/15/25 06:39 Room Air 07/15/25 05:00 Room Air 07/15/25 04:00 97.9 F 55 L 14 106/61 L 97 Room Air 07/15/25 03:00 Room Air 07/15/25 01:00 Room Air 07/14/25 23:00 Room Air 07/14/25 21:00 Room Air 07/14/25 20:00 Room Air 07/14/25 20:00 97.6 F 53 L 16 122/55 L 97 Room Air 07/14/25 18:46 Room Air 07/14/25 17:00 Room Air 07/14/25 16:00 97.9 F 76 16 148/80 H 98 Room Air 07/14/25 15:00 Room Air 07/14/25 13:10 Room Air 07/14/25 11:30 Room Air Intake and Output 07/14/25 07/15/25 07/15/25 23:59 07:59 15:59 Intake Total 1420 / 2330 980 / 980 Output Total 1000 / 2200 750 / 1050 300 / 1050 Balance 420 / 130 230 / -70 -300 / -70 Intake: Intake, Oral Amount 420 / 1330 Intake, Total IV Amount 1000 / 1000 980 / 980 Lactated Ringers 1000ML 1,000 1000 / 1000 980 / 980 ml @ 100 mls/hr IV .Q10H [facility] Rx #:[id number] Output: Output, Urine Amount 1000 / 2200 750 / 1050 300 / 1050 Other: Number of Unmeasured Voids 1 0 Number of Bowel Movements 1 Weight 54.023 kg Patient Weight 07/15/25 23:59 Weight 54.023 kg I & O for Labs for Last 24 Hours: Intake & Output 07/12/25 07/13/25 07/14/25 07/15/25 23:59 23:59 23:59 23:59 Intake Total 181 / 0 2330 / 2330 980 / 980 Output Total 1999 1050 / 1050 Balance 1809 330 / 130 -70 / -70 Weight 55.338 kg 56.79 kg 54.023 kg Microbiology Reports for the Last 24 Hours: Microbiology 07/13/25 21:20 Urine,Clean Catch Urine Culture - Final NO GROWTH AFTER 48 HOURS 07/13/25 20:50 Blood Blood Culture - Preliminary NO GROWTH AFTER 24 HOURS 07/13/25 20:48 Blood Blood Culture - Preliminary NO GROWTH AFTER 24 HOURS Constitutional: Present no acute distress, thin, chronically ill appearing and agitated Respiratory: Present CTA bilaterally and normal respiratory effort; Absent wheezes or crackles Cardiac: Present Reg Rate and Rhythm and No Murmur GI: Present soft; Absent distention or tenderness Rectal (male): Present deferred (male): Present deferred Extremities: Present tenderness; Absent edema Skin: Present erythema, dry and cracked 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 Assessment and Plan *Assessment and plan (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): L26 - Exfoliative dermatitis (2) Abdominal aneurysm: Status: Acute Category: Medical Code(s): I71.40 - Abdominal aortic aneurysm, without rupture, unspecified (3) Inability to walk: Status: Acute Category: Medical Code(s): R26.2 - Difficulty in walking, not elsewhere classified (4) Elevated C-reactive protein (CRP): Status: Acute Category: Medical Code(s): R79.82 - Elevated C-reactive protein (CRP) (5) Leukocytosis: Status: Acute Qualifiers: Leukocytosis type: unspecified Qualified Code(s): D72.829 - Elevated white blood cell count, unspecified Category: Medical Code(s): D72.829 - Elevated white blood cell count, unspecified (6) Rhabdomyolysis: Status: Acute Category: Medical Code(s): M62.82 - Rhabdomyolysis (7) Bilateral leg weakness: Status: Acute Category: Medical Code(s): R29.898 - Other symptoms and signs involving the musculoskeletal system Plan Mr. Wood is a 69-year-old male who presented to the emergency room yesterday morning with complaints of pain and generalized weakness. 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 Discussed if he has had previous treatment and states he has seen a barrel raiser helper but has not heard anything back. He states this has been an ongoing issue for a long time. [facility]. The [facility] was contacted for transfer due to inpatient dermatology services, he was accepted and is awaiting a bed. Lengthy discussion had with patient and patient's daughter, Makenna, about plan of care yesterday. Patient was admitted to our service awaiting transport to . He has been accepted by Dr. Nguyen. After discussion with patient and family they do not want him transferred to the [facility]. Patient is refusing. I spoke with Dr. Todd at who states they do not have any inpatient dermatology and the only close options would be [facility] or [facility], both of which patient and family are not agreeable to. Patient was assessed by PT/OT who recommend placement, discussed with patient the possibility of discharge to placement facility for rehab services and strength gaining, patient and family state they are possibly open to that idea. [facility] is [facility] and the [facility], contacted the [facility] who states they have no beds and do not have inpatient dermatology services. This was explained to the patient and his family who state they may just sign him out of this hospital and take [facility] to the [facility]. Discussed in length my recommendation of continuing to transfer to the [facility] when a bed is available, patient and family continue to refuse. At this time Darby Rowell, social work, states she will reach out to local SNF facilities to see what the patient's options are. If patient decides to discharge to SNF facility, outpatient dermatology follow- up is encouraged due to life limiting skin condition and pain. 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 I believe that his skin condition causes him extreme pain and increased weakness therefore limiting his ability to move and care for himself. Discussed again with the patient today the idea of transfer to [facility], patient again states he is not going to [place]. Patient is agreeable to placement services. Darby Rowell, social work is working on placement options at this time. Patient refused all lab work this morning. States he is not having lab work done while in the hospital. Patient did work with PT/OT and was able to transfer to the chair. #Exfoliative erythroderma #Elevated CRP/ Leukocytosis #Functional decline/generalized weakness ?Upon admission patient's WBC very slightly elevated at 11.2 and CRP 53.5, no repeat labs have been drawn due to patient refusal. ?Currently working on placement for patient's generalized weakness. ?Patient should follow with dermatology in the outpatient setting for further workup. I do believe that the pain he is experiencing is largely related to his dermatology condition. #Abdominal aneurysm ? Patient had abdomen/pelvis CTA on admission which showed a abdominal aneurysm, appears to be stable with no evidence of dissection. Patient denies any abdominal pain. Patient should follow with vascular as an outpatient at discharge. #Constipation, resolved ?Patient abdomen/pelvis CT showed moderate stool burden, patient given lactulose, Colace, Senokot. Patient successful and having bowel movement yesterday. #Rhabdomyolysis ?Patient CK elevated on at 534, patient received LR at 100 mL/H for gentle hydration. Kidney function within normal limits. Patient refused to have repeat labs done today. Full code VTE?Lovenox (patient refused) PT/OT?ambulate as tolerated Regular diet
[2025-07-15 16:00] VITALS: BP 110/46; PULSE 64; RESP 18; TEMP 36.7; O2SAT 94
--- NOTE | 2025-07-15 19:35 | CT_ITS ---
PROCEDURE INFORMATION: Exam: CT Head Without Contrast Exam date and time: 07/15/2025 9:18 PM Age: 69 years old Clinical indication: Other: Confusion TECHNIQUE: Imaging protocol: Computed tomography of the head without contrast. Radiation optimization: All CT scans at this facility use at least one of these dose optimization techniques: automated exposure control; mA and/or kV adjustment per patient size (includes targeted exams where dose is matched to clinical indication); or iterative reconstruction. COMPARISON: No relevant prior studies available. FINDINGS: Brain: Focal encephalomalacia within the left cerebellar hemisphere consistent with old infarct. Old lacunar infarcts within the left and right basal ganglia. Cerebral ventricles: No ventriculomegaly. Paranasal sinuses: Visualized sinuses are unremarkable. No fluid levels. Mastoid air cells: Visualized mastoid air cells are well aerated. Bones: Unremarkable. No acute fracture. Soft tissues: Unremarkable. Other findings: Click moderate small-vessel IMPRESSION: 1. Focal encephalomalacia within the left cerebellar hemisphere consistent with old infarct. 2. Old lacunar infarcts within the left and right basal ganglia. 3. No acute intracranial process is identified.
[2025-07-15 20:00] VITALS: BP 148/83; PULSE 71; RESP 16; TEMP 36.4; O2SAT 93
[2025-07-16 04:00] VITALS: BP 144/80; PULSE 63; RESP 16; TEMP 36.5; O2SAT 94; BMI 19.6
--- NOTE | 2025-07-16 04:04 | PC.NURSE ---
Pt A&OX4 and has tolerated room air. LR has remained infusing at 100ml/ hr. Pt was taken down for a CT of the head. Currently resting with bed alarm in place.
[2025-07-16] MEDS: LACTATED RINGERS 1000ML 1,000 ML 100 ML IV ×2 (05:07→15:04)
[2025-07-16] MEDS: HYDROCODONE/APAP 5/325 MG TABLET 1 TAB PO (06:06)
[2025-07-16 07:40] LABS: Hematocrit 42.0 % (42.0-52.0); Hemoglobin 14.0 g/dL (14.1-18.0); Immature Granulocytes % 0.6 %; Mean Corpuscular HGB Conc 33.3 g/dL (31.8-35.4); Mean Corpuscular Hemoglobin 31.9 pg (27.0-31.2); Mean Corpuscular Volume 95.7 fl (80-94); Nucleated Red Blood Cells % 0 %; Platelet Count 406 K/mm3 (142-424); Red Blood Count 4.39 M/mm3 (4.60-6.20); Red Cell Distribution Width-SD 52.7 fL; White Blood Count 10.0 K/mm3 (4.8-10.8)
[2025-07-16 07:59] LABS: Anion Gap 9.6 mEq/L (5-15); Blood Urea Nitrogen 16 mg/dl (9-20); Calcium 8.4 mg/dl (8.4-10.2); Carbon Dioxide 24 mmol/L (22.0-30.0); Chloride 107 mmol/L (98-107); Creatine Kinase 121 U/L (55-170); Creatinine Clearance Estimated 56 mL/min (50-200); Creatinine,Serum 0.90 mg/dl (0.66-1.25); Estimated Glomerular Filt Rate 84 ml/min (>60); GFR (African American) 101 ML/MIN (>60); Glucose 75 mg/dl (74-100); Potassium 4.6 mmoL/L (3.5-5.1); Sodium 136 mmol/L (136-145)
[2025-07-16 08:00] VITALS: BP 138/82; PULSE 52; RESP 12; TEMP 36.8; O2SAT 98
[2025-07-16 08:58] LABS: Cholesterol 100 mg/dl (140-200); HDL Cholesterol 26 mg/dl (40-60); Triglycerides 74 mg/dl (30-150)
[2025-07-16] MEDS: SENNA 8.6MG TABLET 8.6 MG PO (09:06)
[2025-07-16] MEDS: DOCUSATE SODIUM 250MG CAPSULE 250 MG PO (09:06)
[2025-07-16] MEDS: FOLIC ACID 1MG TABLET 1 MG PO (09:06)
[2025-07-16] MEDS: ATORVASTATIN 40MG TABLET 80 MG PO (09:06)
[2025-07-16] MEDS: ASPIRIN EC 81MG TABLET 81 MG PO (09:06)
[2025-07-16 10:54] LABS: Hemoglobin A1C 6.6 % (4.0-6.0)
[2025-07-16 16:00] VITALS: BP 166/89; PULSE 57; RESP 12; TEMP 36.8; O2SAT 97
--- NOTE | 2025-07-16 17:09 | PC.NURSE ---
Pt is A&Ox4. Vital signs stable tolerating room air. IV fluids infusing per MAR. Pt has had no complaints of pain. Pt has been offered Q2 turn and repositioning for prevenative measures.
--- NOTE | 2025-07-16 17:11 | PC.NURSE ---
Pt is A&Ox4. Vital signs stable tolerating room air. IV fluids infusing per MAR. Pt has had no complaints of pain. Pt has been turned and repositioned Q2 for preventative measures. Pt sitting up in the chair at this time with no further needs voiced at this time. Chair alarm in place. Call light within reach.
--- NOTE | 2025-07-16 17:51 | EXP.PN ---
Subjective *Date: 07/16/25 *Time: 17:51 Interval history: Patient states he is feeling better today, feeling stronger. Eager to be placed in SNF. Extensively discussed CT head findings with patient and daughter on the phone. Encouraged smoking cessation, continue aspirin, follow-up A1c, lipid panel. Exam Data for Last 24 hours Vital signs and Labs for Last 24 Hours: Temp Pulse Resp BP Pulse Ox O2 Del Method 98.3 F 57 L 12 166/89 H 97 Room Air 07/16/25 16:00 07/16/25 16:00 07/16/25 16:00 07/16/25 16:00 07/16/25 16:00 07/16/25 17:00 Laboratory Results - last 24 hr 07/16/25 06:29: WBC 10.0, RBC 4.39 L, Hgb 14.0 L, Hct 42.0, MCV 95.7 H, MCH 31.9 H, MCHC 33.3, RDW 15.2, Plt Count 406, MPV 11.4 H, Neut % (Auto) 61.0, Lymph % (Auto) 27.1, [place] % (Auto) 9.0, Eos % (Auto) 1.2, Baso % (Auto) 1.1, Neut # (Auto) 6.1, Lymph # (Auto) 2.7, [place] # (Auto) 0.9, Eos # (Auto) 0.1, Baso # (Auto) 0.1, Sodium 136, Potassium 4.6, Chloride 107, Carbon Dioxide 24, Anion Gap 9.6, BUN 16, Creatinine 0.90, Estimated Creat Clear 56, Estimated GFR 84, Est GFR ( Amer) 101, Glucose 75, Hemoglobin A1c 6.6 H, Calcium 8.4, Total Creatine Kinase 121 D, Triglycerides 74, Cholesterol 100 L, LDL Cholesterol Direct 77.12 L, VLDL Cholesterol 15, HDL Cholesterol 26 L, Cholesterol/HDL Ratio 3.8 H I & O for Last 24 hours: Intake & Output 07/13/25 07/14/25 07/15/25 07/16/25 23:59 23:59 23:59 23:59 Intake Total 1810 / 1810 2330 / 2330 3090 / 3090 2428.333 / 2428.333 Output Total 1999 1575 / 1675 2019 Balance 1810 / 1810 330 / 130 1515 / 1415 408.333 / 408.333 Weight 55.338 kg 56.79 kg 54.023 kg 56.79 kg Microbiology Reports for the Last 24 Hours: Microbiology 07/13/25 20:50 Blood Blood Culture - Preliminary NO GROWTH AFTER 48 HOURS 07/13/25 20:48 Blood Blood Culture - Preliminary NO GROWTH AFTER 48 HOURS Constitutional Constitutional: no acute distress and chronically ill appearing *Routine HEENT Exam Head: Present normocephalic Eye: Present EOMI and PERRL ENT: Present mucous membranes moist *Routine Neck Exam Neck: Present supple; Absent lymphadenopathy *Routine Respiratory Exam Respiratory: Present CTA bilaterally *Routine Cardiovascular Exam Cardiovascular: Present RRR *Routine Abdominal Exam Abdominal: Present soft and normoactive bowel sounds; Absent tenderness *Routine Extremities Exam Extremities: Absent cyanosis, clubbing or edema *Routine Skin Exam Skin: Present warm; Absent rash Comments: Diffuse scaling and erythema consistent with psoriasis. 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 dermatitis (2) Abdominal aneurysm: Status: Acute Category: Medical Code(s): I71.40 - Abdominal aortic aneurysm, without rupture, unspecified (3) Inability to walk: Status: Acute Category: Medical Code(s): R26.2 - Difficulty in walking, not elsewhere classified (4) Elevated C-reactive protein (CRP): Status: Acute Category: Medical Code(s): R79.82 - Elevated C-reactive protein (CRP) (5) Leukocytosis: Status: Acute Qualifiers: Leukocytosis type: unspecified Qualified Code(s): D72.829 - Elevated white blood cell count, unspecified Category: Medical Code(s): D72.829 - Elevated white blood cell count, unspecified (6) Rhabdomyolysis: Status: Acute Category: Medical Code(s): M62.82 - Rhabdomyolysis (7) Bilateral leg weakness: Status: Acute Category: Medical Code(s): R29.898 - Other symptoms and signs involving the musculoskeletal system Plan Mr. Wood is a 69-year-old male who presented to the emergency room yesterday morning with complaints of pain and generalized weakness. 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 Discussed if he has had previous treatment and states he has seen a product safety manager but has not heard anything back. He states this has been an ongoing issue for a long time. [facility]. [facility] was contacted for transfer due to inpatient dermatology services, he was accepted and is awaiting a bed. Lengthy discussion had with patient and patient's daughter, Makenna, about plan of care yesterday. Patient was admitted to our service awaiting transport to . He has been accepted by Dr. Nguyen. After discussion with patient and family they do not want him transferred to the [facility]. Patient is refusing. I spoke with Dr. Todd at who states they do not have any inpatient dermatology and the only close options would be [facility] or [facility], both of which patient and family are not agreeable to. Patient was assessed by PT/OT who recommend placement, discussed with patient the possibility of discharge to placement facility for rehab services and strength gaining, patient and family state they are possibly open to that idea. [facility] and [facility], contacted the [place] who states they have no beds and do not have inpatient dermatology services. This was explained to the patient and his family who state they may just sign him out of this hospital and take him to the [place] emergency department. Discussed in length my recommendation of continuing to transfer to the [facility] when a bed is available, patient and family continue to refuse. At this time social bernadette Byrne, states she will reach out to local SNF facilities to see what the patient's options are. If patient decides to discharge to SNF facility, outpatient dermatology follow-up is encouraged due to life limiting skin condition and pain. 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 I believe that his skin condition causes him extreme pain and increased weakness therefore limiting his ability to move and care for himself. Discussed with the patient the idea of transfer to , patient again states he is not going to [place]. Patient is agreeable to placement services. social bernadette Byrne is working on placement options at this time. Patient refused all lab work this morning. States he is not having lab work done while in the hospital. Patient did work with PT/OT and was able to transfer to the chair. #Exfoliative erythroderma #Elevated CRP/ Leukocytosis #Functional decline/generalized weakness ?Upon admission patient's WBC very slightly elevated at 11.2 and CRP 53.5, WBC 10.0 today. ?Currently working on placement for patient's generalized weakness. ?Patient should follow with dermatology in the outpatient setting for further workup. I do believe that the pain he is experiencing is largely related to his dermatology condition. #History of CVA ? CT head on 07/15/2025 revealed old infarcts in the left cerebellum, and left and right basal ganglia. ? Patient is a chronic tobacco smoker. Counseled on smoking cessation. ? Follow-up A1c, lipid panel, TSH. ? No new focal deficits at this time. ? Continue aspirin 81 mg. #Abdominal aneurysm ? Patient had abdomen/pelvis CTA on admission which showed a abdominal aneurysm, appears to be stable with no evidence of dissection. Patient denies any abdominal pain. Patient should follow with vascular as an outpatient at discharge. #Constipation, resolved ?Patient abdomen/pelvis CT showed moderate stool burden, patient given lactulose, Colace, Senokot. Patient successful and having bowel movements. #Rhabdomyolysis ?Patient CK elevated on at 534, patient received LR at 100 mL/H for gentle hydration. Kidney function within normal limits. Full code VTE?Lovenox (patient refused) PT/OT?ambulate as tolerated Regular diet
[2025-07-16 20:00] VITALS: BP 161/69; PULSE 54; RESP 16; TEMP 36.4; O2SAT 100
[2025-07-17] MEDS: LACTATED RINGERS 1000ML 1,000 ML 100 ML IV ×3 (01:24→21:46)
[2025-07-17 04:00] VITALS: BP 151/81; PULSE 63; RESP 16; TEMP 36.8; O2SAT 93; BMI 18.7
[2025-07-17 07:24] LABS: Hematocrit 42.7 % (42.0-52.0); Hemoglobin 14.1 g/dL (14.1-18.0); Immature Granulocytes % 0.4 %; Mean Corpuscular HGB Conc 33.0 g/dL (31.8-35.4); Mean Corpuscular Hemoglobin 31.1 pg (27.0-31.2); Mean Corpuscular Volume 94.1 fl (80-94); Nucleated Red Blood Cells % 0 %; Platelet Count 403 K/mm3 (142-424); Red Blood Count 4.54 M/mm3 (4.60-6.20); Red Cell Distribution Width-SD 51.4 fL; White Blood Count 9.2 K/mm3 (4.8-10.8)
[2025-07-17 07:55] LABS: Anion Gap 10.0 mEq/L (5-15); Blood Urea Nitrogen 12 mg/dl (9-20); Calcium 8.9 mg/dl (8.4-10.2); Carbon Dioxide 27 mmol/L (22.0-30.0); Chloride 100 mmol/L (98-107); Creatine Kinase 68 U/L (55-170); Creatinine Clearance Estimated 53 mL/min (50-200); Creatinine,Serum 0.80 mg/dl (0.66-1.25); Estimated Glomerular Filt Rate 96 ml/min (>60); GFR (African American) 116 ML/MIN (>60); Glucose 72 mg/dl (74-100); Potassium 4.0 mmoL/L (3.5-5.1); Sodium 133 mmol/L (136-145)
[2025-07-17 08:00] VITALS: BP 165/90; PULSE 63; RESP 14; TEMP 36.6; O2SAT 96
[2025-07-17] MEDS: SENNA 8.6MG TABLET 8.6 MG PO (08:12)
[2025-07-17] MEDS: ASPIRIN EC 81MG TABLET 81 MG PO (08:12)
[2025-07-17] MEDS: FOLIC ACID 1MG TABLET 1 MG PO (08:12)
[2025-07-17] MEDS: DOCUSATE SODIUM 250MG CAPSULE 250 MG PO (08:12)
[2025-07-17] MEDS: ATORVASTATIN 40MG TABLET 80 MG PO (08:13)
--- NOTE | 2025-07-17 12:04 | EXP.PN ---
Subjective *Date: 07/17/25 *Time: 12:04 Interval history: Patient was resting lying comfortably in bed this morning, no acute concerns. Pending SNF placement. Exam Data for Last 24 hours Vital signs and Labs for Last 24 Hours: Temp Pulse Resp BP Pulse Ox O2 Del Method 97.9 F 63 14 165/90 H 96 Room Air 07/17/25 08:00 07/17/25 08:00 07/17/25 08:00 07/17/25 08:00 07/17/25 08:00 07/17/25 11:00 Laboratory Results - last 24 hr 07/17/25 06:26: WBC 9.2, RBC 4.54 L, Hgb 14.1, Hct 42.7, MCV 94.1 H, MCH 31.1, MCHC 33.0, RDW 14.9, Plt Count 403, MPV 11.1 H, Neut % (Auto) 65.0, Lymph % (Auto) 21.5, [place] % (Auto) 8.8, Eos % (Auto) 3.3, Baso % (Auto) 1.0, Neut # (Auto) 6.0, Lymph # (Auto) 2.0, [place] # (Auto) 0.8, Eos # (Auto) 0.3, Baso # (Auto) 0.1, Sodium 133 L, Potassium 4.0, Chloride 100, Carbon Dioxide 27, Anion Gap 10.0, BUN 12, Creatinine 0.80, Estimated Creat Clear 53, Estimated GFR 96, Est GFR ( Amer) 116, Glucose 72 L, Calcium 8.9, Total Creatine Kinase 68 I & O for Last 24 hours: Intake & Output 07/14/25 07/15/25 07/16/25 07/17/25 23:59 23:59 23:59 23:59 Intake Total 2330 / 2330 3090 / 3090 2578.333 / 2578.333 236 / 236 Output Total 1999 / 2199 1575 / 1675 2019 / 2019 0 / 0 Balance 330 / 130 1515 / 1415 558.333 / 023.078 8774 / 2360 Weight 56.79 kg 54.023 kg 56.79 kg 54.204 kg Constitutional Constitutional: no acute distress and chronically ill appearing *Routine HEENT Exam Head: Present normocephalic Eye: Present EOMI and PERRL ENT: Present mucous membranes moist *Routine Neck Exam Neck: Present supple; Absent lymphadenopathy *Routine Respiratory Exam Respiratory: Present CTA bilaterally *Routine Cardiovascular Exam Cardiovascular: Present RRR *Routine Abdominal Exam Abdominal: Present soft and normoactive bowel sounds; Absent tenderness *Routine Extremities Exam Extremities: Absent cyanosis, clubbing or edema *Routine Skin Exam Skin: Present warm; Absent rash Comments: Diffuse scaling and erythema consistent with psoriasis. 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 dermatitis (2) Abdominal aneurysm: Status: Acute Category: Medical Code(s): I71.40 - Abdominal aortic aneurysm, without rupture, unspecified (3) Inability to walk: Status: Acute Category: Medical Code(s): R26.2 - Difficulty in walking, not elsewhere classified (4) Elevated C-reactive protein (CRP): Status: Acute Category: Medical Code(s): R79.82 - Elevated C-reactive protein (CRP) (5) Leukocytosis: Status: Acute Qualifiers: Leukocytosis type: unspecified Qualified Code(s): D72.829 - Elevated white blood cell count, unspecified Category: Medical Code(s): D72.829 - Elevated white blood cell count, unspecified (6) Rhabdomyolysis: Status: Acute Category: Medical Code(s): M62.82 - Rhabdomyolysis (7) Bilateral leg weakness: Status: Acute Category: Medical Code(s): R29.898 - Other symptoms and signs involving the musculoskeletal system Plan Mr. Wood is a 69-year-old male who presented to the emergency room yesterday morning with complaints of pain and generalized weakness. 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 Discussed if he has had previous treatment and states he has seen a electric motor analyst but has not heard anything back. He states this has been an ongoing issue for a long time. [facility]. The [facility] was contacted for transfer due to inpatient dermatology services, he was accepted and is awaiting a bed. Lengthy discussion had with patient and patient's daughter, Makenna, about plan of care yesterday. Patient was admitted to our service awaiting transport to . He has been accepted by Dr. Nguyen. After discussion with patient and family they do not want him transferred to the [facility]. Patient is refusing. I spoke with Dr. Todd at who states they do not have any inpatient dermatology and the only close options would be [facility] or [facility], both of which patient and family are not agreeable to. Patient was assessed by PT/OT who recommend placement, discussed with patient the possibility of discharge to placement facility for rehab services and strength gaining, patient and family state they are possibly open to that idea. [facility] and the [place] [facility] [place], contacted [place] [facility] who states they have no beds and do not have inpatient dermatology services. This was explained to the patient and his family who state they may just sign him out of this hospital and take [place] the [place]. Discussed in length my recommendation of continuing to transfer to the [facility] when a bed is available, patient and family continue to refuse. At this time social bernadette Byrne, states she will reach out to local SNF facilities to see what the patient's options are. If patient decides to discharge to SNF facility, outpatient dermatology follow-up is encouraged due to life limiting skin condition and pain. 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 I believe that his skin condition causes him extreme pain and increased weakness therefore limiting his ability to move and care for himself. Discussed with the patient the idea of transfer to , patient again states he is not going to [place]. Patient is agreeable to placement services. social bernadette Byrne is working on placement options at this time. Patient refused all lab work this morning. States he is not having lab work done while in the hospital. Patient did work with PT/OT and was able to transfer to the [facility]. #Exfoliative erythroderma #Elevated CRP/ Leukocytosis #Functional decline/generalized weakness ?Upon admission patient's WBC very slightly elevated at 11.2 and CRP 53.5, WBC 10.0 today. ?Currently working on placement for patient's generalized weakness. ?Patient should follow with dermatology in the outpatient setting for further workup. I do believe that the pain he is experiencing is largely related to his dermatology condition. #History of CVA ? CT head on 07/15/2025 revealed old infarcts in the left cerebellum, and left and right basal ganglia. ? Patient is a chronic tobacco smoker. Counseled on smoking cessation. ? A1c 6.6%, LDL 77, TSH pending. ? No new focal deficits at this time. ? Continue aspirin 81 mg, atorvastatin 80 mg. ? Counseled on smoke cessation. #Abdominal aneurysm ? Patient had abdomen/pelvis CTA on admission which showed a abdominal aneurysm, appears to be stable with no evidence of dissection. Patient denies any abdominal pain. Patient should follow with vascular as an outpatient at discharge. #Constipation, resolved ?Patient abdomen/pelvis CT showed moderate stool burden, patient given lactulose, Colace, Senokot. Patient successful and having bowel movements. #Rhabdomyolysis ?Patient CK elevated on at 534, patient received LR at 100 mL/H for gentle hydration. Kidney function within normal limits. Full code VTE?Lovenox (patient refused) PT/OT?ambulate as tolerated Regular diet
[2025-07-17 16:00] VITALS: BP 149/68; PULSE 63; RESP 12; TEMP 36.6; O2SAT 96
--- NOTE | 2025-07-17 17:28 | PC.NURSE ---
Pt is A&Ox4. Vital signs stable tolerating room air. IV fluids infusing per MAR. Pt offered Q2 turn and repositioning for preventative measure. Offered to get pt up to the chair today but pt refused. Pt resting supine comfortably in bed with no further needs voiced at this time. Call light within reach. Bed alarm in place.
[2025-07-17 20:00] VITALS: BP 179/92; PULSE 56; RESP 16; TEMP 36.6; O2SAT 97
--- NOTE | 2025-07-18 03:50 | PC.NURSE ---
Pt is A&OX4 and has tolerated room air. LR has remained infusing at 100ml/ hr. He has slept the majority of the shift. He has had no compalints. Currently asleep with call light within reach.
[2025-07-18 04:00] VITALS: BP 179/77; PULSE 59; RESP 16; TEMP 36.7; O2SAT 97; BMI 18.0
[2025-07-18 07:15] LABS: Hematocrit 41.9 % (42.0-52.0); Hemoglobin 13.8 g/dL (14.1-18.0); Immature Granulocytes % 0.5 %; Mean Corpuscular HGB Conc 32.9 g/dL (31.8-35.4); Mean Corpuscular Hemoglobin 30.9 pg (27.0-31.2); Mean Corpuscular Volume 93.7 fl (80-94); Nucleated Red Blood Cells % 0 %; Platelet Count 451 K/mm3 (142-424); Red Blood Count 4.47 M/mm3 (4.60-6.20); Red Cell Distribution Width-SD 49.7 fL; White Blood Count 10.4 K/mm3 (4.8-10.8)
[2025-07-18 07:27] LABS: Chloride 102 mmol/L (98-107)
[2025-07-18 07:28] LABS: Potassium 4.3 mmoL/L (3.5-5.1); Sodium 139 mmol/L (136-145)
[2025-07-18 07:30] LABS: Blood Urea Nitrogen 13 mg/dl (9-20); Creatine Kinase 59 U/L (55-170); Creatinine Clearance Estimated 51 mL/min (50-200); Creatinine,Serum 0.90 mg/dl (0.66-1.25); Estimated Glomerular Filt Rate 84 ml/min (>60); GFR (African American) 101 ML/MIN (>60)
[2025-07-18 07:31] LABS: Anion Gap 13.3 mEq/L (5-15); Calcium 8.8 mg/dl (8.4-10.2); Carbon Dioxide 28 mmol/L (22.0-30.0); Glucose 74 mg/dl (74-100)
[2025-07-18 08:00] VITALS: BP 126/92; PULSE 60; RESP 14; TEMP 36.6; O2SAT 96
[2025-07-18] MEDS: ASPIRIN EC 81MG TABLET 81 MG PO (08:12)
[2025-07-18] MEDS: DOCUSATE SODIUM 250MG CAPSULE 250 MG PO (08:12)
[2025-07-18] MEDS: SENNA 8.6MG TABLET 8.6 MG PO (08:12)
[2025-07-18] MEDS: FOLIC ACID 1MG TABLET 1 MG PO (08:12)
[2025-07-18] MEDS: ATORVASTATIN 40MG TABLET 80 MG PO (08:13)
[2025-07-18] MEDS: LACTATED RINGERS 1000ML 1,000 ML 100 ML IV (08:17)
--- NOTE | 2025-07-18 10:10 | P.PN_ITS ---
<Statement entered by Jesus Johnson MD - 07/19/25 15:42> Agree with plan of care as outlined by the SPARERIBS TRIMMER. Subjective *Date: 07/18/25 *Time: 12:23 Interval history: Mr. Wood is doing well today, up in bed. States he is ready to get out of the hospital. Overall feels well. Strength has increased but is still weak. Has no complaints today. Medical Exam Vital signs and Labs for Last 24 Hours: Vital Signs Temp Pulse Resp BP Pulse Ox O2 Del Method 07/18/25 08:00 97.9 F 60 14 126/92 H 96 Room Air 07/18/25 06:38 Room Air 07/18/25 05:00 Room Air 07/18/25 04:00 98.1 F 59 L 16 179/77 H 97 Room Air 07/18/25 03:00 Room Air 07/18/25 01:00 Room Air 07/17/25 23:00 Room Air 07/17/25 21:00 Room Air 07/17/25 20:00 Room Air 07/17/25 20:00 97.9 F 56 L 16 179/92 H 97 Room Air 07/17/25 19:00 Room Air 07/17/25 17:00 Room Air 07/17/25 16:00 97.9 F 63 12 149/68 H 96 Room Air 07/17/25 15:00 Room Air 07/17/25 13:00 Room Air 07/17/25 11:00 Room Air Intake and Output 07/17/25 07/18/25 07/18/25 23:59 07:59 15:59 Intake Total 1450 / 4170 1000 / 1120 120 / 1120 Output Total 605 / 605 200 / 200 Balance 845 / 3565 800 / 920 120 / 920 Intake: Intake, Oral Amount 450 / 1170 120 / 120 Intake, Total IV Amount 1000 / 3000 1000 / 1000 Lactated Ringers 1000ML 1,000 1000 / 3000 1000 / 1000 ml @ 100 mls/hr IV .Q10H DAVID Rx #:[id number] Output: Output, Urine Amount 605 / 605 200 / 200 Other: Number of Unmeasured Voids 0 1 Number of Bowel Movements 1 Weight 52.163 kg Patient Weight 07/18/25 23:59 Weight 52.163 kg Laboratory Results - last 24 hr 07/18/25 06:17: WBC 10.4, RBC 4.47 L, Hgb 13.8 L, Hct 41.9 L, MCV 93.7, MCH 30.9, MCHC 32.9, RDW 14.6, Plt Count 451 H, MPV 10.7 H, Neut % (Auto) 65.5, Lymph % (Auto) 20.4, [place] % (Auto) 8.8, Eos % (Auto) 3.8, Baso % (Auto) 1.0, Neut # (Auto) 6.8, Lymph # (Auto) 2.1, [place] # (Auto) 0.9, Eos # (Auto) 0.4, Baso # (Auto) 0.1, Sodium 139, Potassium 4.3, Chloride 102, Carbon Dioxide 28, Anion Gap 13.3, BUN 13, Creatinine 0.90, Estimated Creat Clear 51, Estimated GFR 84, Est GFR ( Amer) 101, Glucose 74, Calcium 8.8, Total Creatine Kinase 59 I & O for Labs for Last 24 Hours: Intake & Output 07/15/25 07/16/25 07/17/25 07/18/25 23:59 23:59 23:59 23:59 Intake Total 3090 / 3090 2578.333 / 2578.333 4170 / 4170 1120 / 1120 Output Total 1575 / 1675 2019 605 / 605 200 / 200 Balance 1515 / 1415 558.333 / 594.615 4774 / 3565 920 / 920 Weight 54.023 kg 56.79 kg 54.204 kg 52.163 kg Microbiology Reports for the Last 24 Hours: Microbiology 07/13/25 20:50 Blood Blood Culture - Preliminary NO GROWTH AFTER 4 DAYS 07/13/25 20:48 Blood Blood Culture - Preliminary NO GROWTH AFTER 4 DAYS Constitutional: Present no acute distress, thin, chronically ill appearing and agitated Respiratory: Present CTA bilaterally and normal respiratory effort; Absent wheezes or crackles Cardiac: Present Reg Rate and Rhythm and No Murmur GI: Present soft; Absent distention or tenderness Rectal (male): Present deferred (male): Present deferred Extremities: Present tenderness; Absent edema Skin: Present erythema, dry and cracked 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 Assessment and Plan *Assessment and plan (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): L26 - Exfoliative dermatitis (2) Abdominal aneurysm: Status: Acute Category: Medical Code(s): I71.40 - Abdominal aortic aneurysm, without rupture, unspecified (3) Inability to walk: Status: Acute Category: Medical Code(s): R26.2 - Difficulty in walking, not elsewhere classified (4) Elevated C-reactive protein (CRP): Status: Acute Category: Medical Code(s): R79.82 - Elevated C-reactive protein (CRP) (5) Leukocytosis: Status: Acute Qualifiers: Leukocytosis type: unspecified Qualified Code(s): D72.829 - Elevated white blood cell count, unspecified Category: Medical Code(s): D72.829 - Elevated white blood cell count, unspecified (6) Rhabdomyolysis: Status: Acute Category: Medical Code(s): M62.82 - Rhabdomyolysis (7) Bilateral leg weakness: Status: Acute Category: Medical Code(s): R29.898 - Other symptoms and signs involving the musculoskeletal system Plan Mr. Wood is a 69-year-old male who presented to the emergency room on 07/14/2025 with complaints of pain and generalized weakness. 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 Discussed if he has had previous treatment and states he has seen a assisted living assistant but has not heard anything back. He states this has been an ongoing issue for a long time. Patient is [facility]. The [facility] was contacted for transfer due to inpatient dermatology services, he was accepted and is awaiting a bed. Lengthy discussion had with patient and patient's daughter, Makenna, about plan of care yesterday. Patient was admitted to our service awaiting transport to . He has been accepted by Dr. Nguyen. After discussion with patient and family they do not want him transferred to the [facility]. Patient is refusing. I spoke with Dr. Todd at who states they do not have any inpatient dermatology and the only close options would be [facility] or [facility], both of which patient and family are not agreeable to. Patient was assessed by PT/OT who recommend placement, discussed with patient the possibility of discharge to placement facility for rehab services and strength gaining, patient and family state they are possibly open to that idea. Patient is [place] patient and the [place] want him transferred [place] the [place], contacted the [place] who states they have no beds and do not have inpatient dermatology services. This was explained to the patient and his family who state they may just sign him out of this hospital and take him to the [place] emergency department. Discussed in length my recommendation of continuing to transfer to the [facility] when a bed is available, patient and family continue to refuse. At this time social Chavez work, states she will reach out to local SNF facilities to see what the patient's options are. If patient decides to discharge to SNF facility, outpatient dermatology follow-up is encouraged due to life limiting skin condition and pain. 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 I believe that his skin condition causes him extreme pain and increased weakness therefore limiting his ability to move and care for himself. Discussion was had with the patient about transfer to , patient again states he is not going to [place]. Patient is agreeable to placement services. social bernadette Byrne is working on placement options at this time. Patient is working with PT/OT. Patient has been accepted to [facility], awaiting insurance approval at this time. Plan of care as follows: #Exfoliative erythroderma #Elevated CRP/ Leukocytosis #Functional decline/generalized weakness ? Upon admission patient's WBC very slightly elevated at 11.2 and CRP 53.5, WBC 10.4. No electrolyte abnormalities noted. ? Awaiting placement at [facility]. ? Patient should follow with dermatology in the outpatient setting for further workup. I do believe that the pain he is experiencing is largely related to his dermatology condition. #History of CVA ? CT head on 07/15/2025 revealed old infarcts in the left cerebellum, and left and right basal ganglia. ? Patient is a chronic tobacco smoker. Counseled on smoking cessation. ? A1c 6.6%, LDL 77, TSH pending. ? No new focal deficits at this time. ? Continue aspirin 81 mg, atorvastatin 80 mg. #Abdominal aneurysm ? Patient had abdomen/pelvis CTA on admission which showed a abdominal aneurysm, appears to be stable with no evidence of dissection. Patient denies any abdominal pain. Patient should follow with vascular as an outpatient at discharge. #Rhabdomyolysis ?Patient CK elevated on at 534, patient received LR at 100 mL/H for gentle hydration. Kidney function within normal limits. Repeat CK 59. Full code VTE?Lovenox (patient refused) PT/OT?ambulate as tolerated Regular diet
--- NOTE | 2025-07-18 15:00 | P.DS_ITS ---
<Statement entered by Jesus Johnson MD - 07/19/25 15:38> Agree with plan of care as outlined by the EAR MACHINE OPERATOR. General Admission date:: 07/14/25 Discharge date: 07/18/25 HPI HPI HPI: This is a 69-year-old male who has a past medical history significant for chronic leg pain, difficulty walking, and possible CVA who presents to the emergency room with a chief complaint of weakness, difficulty urinating, and incontinence over the last week. Due to patient's symptoms, he presented to the emergency room for evaluation. While in the emergency room, chest x-ray was negative for any acute cardiopulmonary process. 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 He is currently awaiting bed placement. Patient has been accepted and is awaiting transfer to tertiary facility. He was in the emergency room for greater than 10 hours; as result, hospital medicine admitted patient for further management. During my evaluation of the patient, patient was a very poor historian. He did mention the a forementioned symptomology. [facility] in the past but it was not clear. There is no family at the bedside during my evaluation. Patient currently denies any chest pain, lightheadedness, dizziness, fever, chills, rigors, nausea, vomiting, shortness of breath, dyspnea, or diarrhea. Additional pertinent vitals obtained include white blood cell count 11.2, red blood cell count of 4.52, INR 1.12, blood glucose 102, magnesium 1.5, CPK of 534, and C-reactive protein of 53.5. Hospital Course Hospital Course Hospital Course: Mr. Wood is a 69-year-old male who presented to the emergency room on 12/4/2 025 with complaints of pain and generalized weakness. 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 Discussed if he has had previous treatment and states he has seen a internal communications manager but has not heard anything back. He states this has been an ongoing issue for a long time. [facility]. The [facility] was contacted for transfer due to inpatient dermatology services, he was accepted and is awaiting a bed. Lengthy discussion had with patient and patient's daughter, Makenna, about plan of care yesterday. Patient was admitted to our service awaiting transport to . He has been accepted by Dr. Nguyen. After discussion with patient and family they do not want him transferred to the [facility]. Patient is refusing. I spoke with Dr. Todd at who states they do not have any inpatient dermatology and the only close options would be [facility] or [facility], both of which patient and family are not agreeable to. Patient was assessed by PT/OT who recommend placement, discussed with patient the possibility of discharge to placement facility for rehab services and strength gaining, patient and family state they are possibly open to that idea. Patient is a [facility] and the [facility], contacted the [facility] who states they have no beds and do not have inpatient dermatology services. This was explained to the patient and his family who state they may just sign him out of this hospital and take him to the [facility] emergency department. Discussed in length my recommendation of continuing to transfer to the [facility] when a bed is available, patient and family continue to refuse. At this time social bernadette Byrne, states she will reach out to local SNF facilities to see what the patient's options are. If patient decides to discharge to SNF facility, outpatient dermatology follow-up is encouraged due to life limiting skin condition and pain. 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 I believe that his skin condition causes him extreme pain and increased weakness therefore limiting his ability to move and care for himself. Discussion was had with the patient about transfer to , patient again states he is not going to [facility]. Patient is agreeable to placement services. social bernadette Byrne is working on placement options at this time. Patient is working with PT/OT. Patient has been accepted to [facility], and plans to transfer for rehab services today at discharge. Call hospital course as follows: #Exfoliative erythroderma #Elevated CRP/ Leukocytosis, resolved #Functional decline/generalized weakness ? Upon admission patient's WBC very slightly elevated at 11.2 and CRP 53.5, WBC 10.4. No electrolyte abnormalities noted. ? Patient should follow with dermatology in the outpatient setting for further workup. I do believe that the pain he is experiencing is largely related to his dermatology condition. ? Discussion with patient he states he already has a internal communications manager at the [facility], unsure of name at this time. Patient states he will follow-up with dermatology after discharge. #History of CVA ? CT head on 07/15/2025 revealed old infarcts in the left cerebellum, and left and right basal ganglia. ? Patient is a chronic tobacco smoker. Counseled on smoking cessation. ? A1c 6.6%, LDL 77. ? No new focal deficits at this time. ? Continue aspirin 81 mg, atorvastatin 80 mg at discharge. #Abdominal aneurysm ? Patient had abdomen/pelvis CTA on admission which showed a abdominal aneurysm, appears to be stable with no evidence of dissection. Patient denies any abdominal pain. Patient should follow with vascular as an outpatient at discharge discussed with patient, states he would like to see someone at the [facility]. Patient should discuss this with PCP. #Rhabdomyolysis, resolved ?Patient CK elevated on at 534, patient received LR at 100 mL/H for gentle hydration. Kidney function within normal limits. Repeat CK 59. Total time spent on discharge 35 minutes in counseling, documentation, chart review, and direct care with patient. Exam Data for Last 24 hours Vital signs and Labs for Last 24 Hours: Temp Pulse Resp BP Pulse Ox O2 Del Method 97.9 F 60 14 126/92 H 96 Room Air 07/18/25 08:00 07/18/25 08:00 07/18/25 08:00 07/18/25 08:00 07/18/25 08:00 07/18/25 13:00 Laboratory Results - last 24 hr 07/18/25 06:17: WBC 10.4, RBC 4.47 L, Hgb 13.8 L, Hct 41.9 L, MCV 93.7, MCH 30.9, MCHC 32.9, RDW 14.6, Plt Count 451 H, MPV 10.7 H, Neut % (Auto) 65.5, Lymph % (Auto) 20.4, Fajardo % (Auto) 8.8, Eos % (Auto) 3.8, Baso % (Auto) 1.0, Neut # (Auto) 6.8, Lymph # (Auto) 2.1, Fajardo # (Auto) 0.9, Eos # (Auto) 0.4, Baso # (Auto) 0.1, Sodium 139, Potassium 4.3, Chloride 102, Carbon Dioxide 28, Anion Gap 13.3, BUN 13, Creatinine 0.90, Estimated Creat Clear 51, Estimated GFR 84, Est GFR ( Amer) 101, Glucose 74, Calcium 8.8, Total Creatine Kinase 59 I & O for Last 24 hours: Intake & Output 07/15/25 07/16/25 07/17/25 07/18/25 23:59 23:59 23:59 23:59 Intake Total 3090 / 3090 2578.333 / 2578.333 4170 / 4170 1360 / 1360 Output Total 1575 / 1675 2020 / 2020 605 / 605 450 / 450 Balance 1515 / 1415 558.333 / 003.903 4744 / 3565 910 / 910 Weight 54.023 kg 56.79 kg 54.204 kg 52.163 kg Microbiology Reports for the Last 24 Hours: Microbiology 07/13/25 20:50 Blood Blood Culture - Preliminary NO GROWTH AFTER 4 DAYS 07/13/25 20:48 Blood Blood Culture - Preliminary NO GROWTH AFTER 4 DAYS Constitutional Constitutional: no acute distress, thin and chronically ill appearing *Routine HEENT Exam Head: Present normocephalic Eye: Present EOMI and PERRL ENT: Present mucous membranes moist *Routine Neck Exam Neck: Present supple; Absent lymphadenopathy *Routine Respiratory Exam Respiratory: Present CTA bilaterally *Routine Cardiovascular Exam Cardiovascular: Present RRR *Routine Abdominal Exam Abdominal: Present soft and normoactive bowel sounds; Absent tenderness *Routine Extremities Exam Extremities: Absent cyanosis, clubbing or edema *Routine Skin Exam Skin: Present warm; Absent rash Comments: Diffuse scaling and erythema consistent with psoriasis. *Routine Neurological Exam Neurological: Present alert and oriented X3 Results Data Completed and Pending Labs on day of discharge: Labs from last 24 hours 07/18/25 06:17 WBC 10.4 RBC 4.47 L Hgb 13.8 L Hct 41.9 L MCV 93.7 MCH 30.9 MCHC 32.9 RDW 14.6 Plt Count 451 H MPV 10.7 H Neut % (Auto) 65.5 Lymph % (Auto) 20.4 Fajardo % (Auto) 8.8 Eos % (Auto) 3.8 Baso % (Auto) 1.0 Neut # (Auto) 6.8 Lymph # (Auto) 2.1 Fajardo # (Auto) 0.9 Eos # (Auto) 0.4 Baso # (Auto) 0.1 Sodium 139 Potassium 4.3 Chloride 102 Carbon Dioxide 28 Anion Gap 13.3 BUN 13 Creatinine 0.90 Estimated Creat Clear 51 Estimated GFR 84 Est GFR ( Amer) 101 Glucose 74 Calcium 8.8 Total Creatine Kinase 59 Preliminary micro results at discharge 07/13/25 20:50 Blood Culture - Preliminary Blood NO GROWTH AFTER 4 DAYS 07/13/25 20:48 Blood Culture - Preliminary Blood NO GROWTH AFTER 4 DAYS DS: Diagnosis Discharge Diagnosis (1) Exfoliative erythroderma: Status: Acute Code(s): L26 - Exfoliative dermatitis (2) Abdominal aneurysm: Status: Acute Code(s): I71.40 - Abdominal aortic aneurysm, without rupture, unspecified (3) Inability to walk: Status: Acute Code(s): R26.2 - Difficulty in walking, not elsewhere classified (4) Elevated C-reactive protein (CRP): Status: Acute Code(s): R79.82 - Elevated C-reactive protein (CRP) (5) Leukocytosis: Status: Acute Code(s): D72.829 - Elevated white blood cell count, unspecified Qualifiers: Leukocytosis type: unspecified Qualified Code(s): D72.829 - Elevated white blood cell count, unspecified (6) Rhabdomyolysis: Status: Acute Code(s): M62.82 - Rhabdomyolysis (7) Bilateral leg weakness: Status: Acute Code(s): R29.898 - Other symptoms and signs involving the musculoskeletal system Meds Home Medications and Allergies Home Medications ?Medication ?Instructions ?Recorded ?Confirmed ?Type aspirin 81 mg tablet 81 mg PO DAILY 07/14/2512/03 History atorvastatin 80 mg tablet 80 mg PO DAILY 07/14/2512/03 History folic acid 1 mg tablet 1 mg PO DAILY 07/14/2507/14 History methotrexate sodium 2.5 mg tablet 20 mg PO WEEKLY 12/0307/14/25 History New Prescriptions to Start Prescriptions: Allergies Allergy/AdvReac Type Severity Reaction Status Date / Time No Known Allergies Allergy Verified 07/13/25 19:04 Discharge Plan Disposition Patient Disposition: er [facility] Condition: Fair Discharge Order Discharge Orders: Discharge Order (Routine); Ordered 07/18/25 Ordered By: Vaishali Gaston Follow up Plan Follow up with: Provider,MD [facility] [Primary Care Provider, Medical] - Enter time for follow up Prescriptions/Medication Reconciliation: Continued atorvastatin 80 mg Tablet 80 mg PO DAILY Rx Instructions: DO NOT DRINK GRAPEFRUIT JUICE WHILE ON THIS DRUG methotrexate sodium 2.5 mg Tablet 20 mg PO WEEKLY folic acid 1 mg Tablet 1 mg PO DAILY Rx Instructions: TAKE DAILY EXCEPT ON DAY OF METHOTREXATE NA aspirin 81 mg Tablet 81 mg PO DAILY Problem Reconciliation Problems Reviewed?: Yes Patient Discharge Instructions ACTIVITY: Continue current activity and Ambulate as tolerated DIET: continue same diet Patient Instructions: DI for Muscle Weakness, DI for Rhabdomyolysis Print Language: Italian Providers Primary Care Provider: Provider,Referral Admit Provider: Jesus Johnson Attending Provider: Jesus Johnson
== END 2025-07-18 16:34 ==
LOC: ER 23:20 → 2ND 07-14 05:22
PROVIDERS: Nurse Practitioner; Nurse Practitioner Family; Admitting Provider Student in an Organized Health Care Education/Training Program; Emergency Provider Student in an Organized Health Care Education/Training Program; Visit Provider Student in an Organized Health Care Education/Training Program
DX: M62.82 Rhabdomyolysis (principal); L26 Exfoliative dermatitis; F17.200 Nicotine dependence, unspecified, uncomplicated; Z79.899 Other long term (current) drug therapy; Z79.82 Long term (current) use of aspirin; Z86.73 Personal history of transient ischemic attack (TIA), and cerebral infarction without residual deficits; I71.40 Abdominal aortic aneurysm, without rupture, unspecified; R26.2 Difficulty in walking, not elsewhere classified; R79.82 Elevated C-reactive protein (CRP); D72.829 Elevated white blood cell count, unspecified; G93.89 Other specified disorders of brain; R59.0 Localized enlarged lymph nodes; J43.9 Emphysema, unspecified; K59.00 Constipation, unspecified; R91.1 Solitary pulmonary nodule; R94.31 Abnormal electrocardiogram [ECG] [EKG]; I70.202 Unspecified atherosclerosis of native arteries of extremities, left leg
CPT/HCPCS: 0223U; 36415; 51702; 70450; 71045; 74177; 75635; 80048; 80053; 80061; 81001; 82550; 83036; 83605; 83690; 83735; 85007; 85025; 85027; 85610; 85651; 85730; 86140; 87040; 87086; 93005; 96361; 96365; 96372; 96375; 97162; 97166; 97530; 99285; G0378; J0696; J1100; J1650; J2270; J2405; J3475; J7120; Q9967